=== PATIENT | male | born 1955 | race Hispanic/Latino ===

== ENCOUNTER 2018-07-31 12:36 | Inpatient (IN) | payer BC, OTHER ==
[2018-07-31 12:42] VITALS: BMI 25.0
[2018-07-31] MEDS ORDERED: Sodium Chloride 0.9% 1,000 ML IV ONE ×3 (13:29→17:06)
[2018-07-31 13:56] LABS: LYMPH # 0.4 K/uL (1.0-4.3); MONO # 0.7 K/uL (0.0-0.8); NEUT # 4.5 K/uL (1.8-7.0); WHITE BLOOD COUNT 5.6 K/uL (4.8-10.8)
[2018-07-31 14:04] LABS: BASO % 0.5 % (0.0-2.0); HEMOGLOBIN 13.9 g/dL (12.0-18.0); MEAN CELL VOLUME 94.1 fL (80.0-94.0); MEAN CORPUSCULAR HEMOGLOBIN 34.3 pg (27.0-31.0); MEAN CORPUSCULAR HGB CONC 36.5 g/dL (33.0-37.0); MEAN PLATELET VOLUME 8.2 fL (7.2-11.7); MONO % 11.7 % (0.0-10.0); NEUT % 80.8 % (50.0-75.0); RBC 4.06 Mil/uL (4.40-5.90); RED CELL DISTRIBUTION WIDTH 13.2 % (11.5-14.5)
[2018-07-31 14:10] LABS: PLATELET COUNT 116 K/uL (130-400)
[2018-07-31 14:13] LABS: ALB/GLOB RATIO 1.2 (1.0-2.1); ALBUMIN 3.7 g/dL (3.5-5.0); ALT/SGPT 75 U/L (21-72); AST/SGOT 55 U/L (17-59); BLOOD UREA NITROGEN 17 mg/dL (9-20); CALCIUM 8.8 mg/dl (8.6-10.4); GFR NON-AFRICAN AMERICAN > 60
[2018-07-31 14:26] LABS: CK-MB < 0.22 ng/mL (0.0-3.38)
--- NOTE | 2018-07-31 14:34 | CT ---
Date of service: 07/31/2018 PROCEDURE: CT HEAD WITHOUT CONTRAST. HISTORY: SYNCOPE COMPARISON: 11/20/2013 TECHNIQUE: Axial computed tomography images were obtained through the head/brain without intravenous contrast. Radiation dose: Total exam DLP = 1139.82 mGy-cm. This CT exam was performed using one or more of the following dose reduction techniques: Automated exposure control, adjustment of the mA and/or kV according to patient size, and/or use of iterative reconstruction technique. FINDINGS: HEMORRHAGE: No intracranial hemorrhage. BRAIN: No mass effect or edema. No atrophy or chronic microvascular ischemic changes. VENTRICLES: Unremarkable. No hydrocephalus. CALVARIUM: Unremarkable. PARANASAL SINUSES: Unremarkable as visualized. No significant inflammatory changes. MASTOID AIR CELLS: Unremarkable as visualized. No inflammatory changes. OTHER FINDINGS: None. IMPRESSION: No intracranial mass, hemorrhage or evidence of acute infarct.
[2018-07-31 14:40] LABS: BANDS 10 % (0-2); LYMPHOCYTE 7 % (20-40); MONOCYTE 13 % (0-10); NEUTROPHIL 69 % (50-75); REACTIVE LYMPHOCYTES 1 % (0-0); TOTAL CELLS COUNTED 100
[2018-07-31 14:41] LABS: PLATELET ESTIMATE SLIGHTLY DECREASED (NORMAL)
[2018-07-31] MEDS ORDERED: Sodium Chloride 0.9% 1,000 ML ONE ×2 (15:12→17:23)
[2018-07-31] MEDS ORDERED: Iodixanol 320 MG/ML 100 ML BOTTLE IV ONE (15:33)
[2018-07-31 15:53] LABS: SQUAMOUS EPITHIAL 1 /hpf (0-5); URINE BILIRUBIN NEGATIVE (NEGATIVE); URINE BLOOD NEGATIVE (NEGATIVE); URINE CLARITY Hazy (Clear); URINE COLOR Amber (YELLOW); URINE GLUCOSE (UA) 1+ mg/dL (Normal); URINE LEUKOCYTE ESTERASE NEG Leu/uL (Negative); URINE PROTEIN 2+ mg/dL (NEGATIVE)
--- NOTE | 2018-07-31 16:08 | C.PDOC ---
History Of Present Illness 63 y/o male pt presents to the ER by ambulance from his PMD office due to a syncopal episode. As per EMS, pt has orthostatic changes. As per pt, he has not been feeling well for several days associated with body aches and weakness. Pt reports he went to his PMD today to get his sx checked out. Pt recalls 1 episode of syncope when he was getting his blood taken. He denies chest pain, palpitations, SOB, nausea, vomiting and diarrhea. Time Seen by Provider: 07/31/18 13:03 Chief Complaint (Nursing): Syncope History Per: Patient, EMS History/Exam Limitations: no limitations Onset/Duration Of Symptoms: Hrs Current Symptoms Are (Timing): Still Present Past Medical History Reviewed: Historical Data, Nursing Documentation, Vital Signs Vital Signs: Last Vital Signs Temp 84 F L 07/31/18 12:42 Pulse 73 07/31/18 15:27 Resp 18 07/31/18 15:27 BP 151/86 H 07/31/18 15:27 Pulse Ox 95 07/31/18 15:27 Primary Care Provider: Zev Shipman - Medical History PMH: Arthritis, Depression, Diabetes, Gastritis, Hepatitis (C), HTN Family History: States: Unknown Family Hx - Social History Hx Tobacco Use: No Hx Alcohol Use: No Hx Substance Use: No - Immunization History Hx Tetanus Toxoid Vaccination: No Hx Influenza Vaccination: No Hx Pneumococcal Vaccination: No Review Of Systems Constitutional: Positive for: Other (syncopal episode ) Cardiovascular: Negative for: Chest Pain, Palpitations Respiratory: Negative for: Shortness of Breath Gastrointestinal: Negative for: Nausea, Vomiting, Diarrhea Musculoskeletal: Positive for: Other (body aches ) Neurological: Positive for: Weakness Physical Exam - Physical Exam Appears: Non-toxic, Other (mildly uncomfortable; fatigue) Skin: Warm, Dry Head: Atraumatic, Normacephalic Eye(s): bilateral: PERRL, EOMI Oral Mucosa: Moist Throat: Normal Neck: Normal ROM, Supple Chest: Symmetrical Cardiovascular: Rhythm Regular Respiratory: Normal Breath Sounds Gastrointestinal/Abdominal: Soft, No Tenderness Back: No CVA Tenderness, No Vertebral Tenderness Extremity: Normal ROM (x4) Neurological/Psych: Oriented x3, Normal Speech ED Course And Treatment - Laboratory Results Result Diagrams: 07/31/18 13:44 07/31/18 13:44 Lab Results: D-Dimer, Quantitative 1038 ng/mlDDU (0-243) H 07/31/18 13:44 Troponin I < 0.0120 ng/mL (0.00-0.120) 07/31/18 13:44 Total Bilirubin 0.8 mg/dL (0.2-1.3) 07/31/18 13:44 AST 55 U/L (17-59) 07/31/18 13:44 ALT 75 U/L (21-72) H 07/31/18 13:44 Alkaline Phosphatase 48 U/L (38-126) 07/31/18 13:44 Total Protein 6.7 g/dL (6.3-8.3) 07/31/18 13:44 Albumin 3.7 g/dL (3.5-5.0) 07/31/18 13:44 Globulin 3.0 gm/dL (2.2-3.9) 07/31/18 13:44 Albumin/Globulin Ratio 1.2 (1.0-2.1) 07/31/18 13:44 Urine Color Audrey (YELLOW) 07/31/18 15:41 Urine Clarity Hazy (Clear) 07/31/18 15:41 Urine pH 5.0 (5.0-8.0) 07/31/18 15:41 Ur Specific [place] 1.032 (1.003-1.030) H 07/31/18 15:41 Urine Protein 2+ mg/dL (NEGATIVE) H 07/31/18 15:41 Urine Glucose (UA) 1+ mg/dL (Normal) H 07/31/18 15:41 Urine Ketones 1+ mg/dL (NEGATIVE) H 07/31/18 15:41 Urine Blood Negative (NEGATIVE) 07/31/18 15:41 Urine Nitrate Negative (NEGATIVE) 07/31/18 15:41 Urine Bilirubin Negative (NEGATIVE) 07/31/18 15:41 Urine Urobilinogen 4.0 mg/dL (0.2-1.0) 07/31/18 15:41 Ur Leukocyte Esterase Neg Fausto/uL (Negative) 07/31/18 15:41 Urine WBC (Auto) 7 /hpf (0-5) H 07/31/18 15:41 Urine RBC (Auto) 2 /hpf (0-3) 07/31/18 15:41 Ur Squamous Epith Cells 1 /hpf (0-5) 07/31/18 15:41 ECG: Interpreted By Me, Viewed By Me ECG Rhythm: Sinus Rhythm Interpretation Of ECG: normal axis and no acute ST or T wave changes Rate From EC O2 Sat by Pulse Oximetry: 95 (RA) Pulse Ox Interpretation: Normal - CT Scan/US Head CT Other Rad Studies (CT/US): Read By Radiologist, Radiology Report Reviewed CT/US Interpretation: Accession No. : [id number]. Patient Name / ID : VARGHESE MURRAY / [id number]. Exam Date : 07/31/2018 13:54:00 ( Approved ). Study Comment : Sex / Age : M / 63Y. Creator : Eduard Iraheta MD. Dictator : Eduard Iraheta MD. Steel Heater : [employer] : Eduard Iraheta MD. Approver2 : Report Date : 07/31/2018 14:30:21. My Comment : . Date of service: 07/31/2018. PROCEDURE: CT HEAD WITHOUT CONTRAST. HISTORY: SYNCOPE. COMPARISON: 11/20/2013. TECHNIQUE: Axial computed tomography images were obtained through the head/brain without intravenous contrast. Radiation dose: Total exam DLP = 1139.82 mGy-cm. This CT exam was performed using one or more of the following dose reduction techniques: Automated exposure control, adjustment of the mA and/or kV according to patient size, and/or use of iterative reconstruction technique. FINDINGS: HEMORRHAGE: No intracranial hemorrhage. BRAIN: No mass effect or edema. No atrophy or chronic microvascular ischemic changes. VENTRICLES: Unremarkable. No hydrocephalus. CALVARIUM: Unremarkable. PARANASAL SINUSES: Unremarkable as visualized. No significant inflammatory changes. MASTOID AIR CELLS: Unremarkable as visualized. No inflammatory changes. OTHER FINDINGS: None. IMPRESSION: No intracranial mass, hemorrhage or evidence of acute infarct. Chest CT Other Rad Studies (CT/US): Read By Radiologist, Radiology Report Reviewed CT/US Interpretation: Accession No. : [id number]. Patient Name / ID : VARGHESE Gilmore / [id number]. Exam Date : 07/31/2018 16:19:45 ( Approved ). Study Comment : Sex / Age : M / 63Y. Creator : Indiana Peck. Dictator : Dinesh Mobley MD. Steel Heater : [employer] : Dinesh Mobley MD. Approver2 : Report Date : 07/31/2018 16:30:58. My Comment : . Date of service: 07/31/2018. PROCEDURE: CT Chest with contrast (Pulmonary Angiogram). HISTORY: SYNCOPE, ELEVATED D-DIMER. COMPARISON: None available. TECHNIQUE: Axial computed tomography images were obtained of the chest in the pulmonary arterial phase of enhancement. Coronal and sagittal reformatted images were created and reviewed. Intravenous contrast dose: 100 cc Visipaque 320. Radiation dose: Total exam DLP = 562.74 mGy-cm. This CT exam was performed using one or more of the following dose reduction techniques: Automated exposure control, adjustment of the mA and/or kV according to patient size, and/or use of iterative reconstruction technique. FINDINGS: PULMONARY ARTERIES: The visualized pulmonary trunk, right and left main, lobar, segmental and subsegmental branches of the pulmonary arteries are well opacified with no definitive filling defects seen to suggest acute central pulmonary embolus. Pulmonary trunk measures approximately 2.9 cm. AORTA: Heart size normal. No significant pericardial effusion. No acute findings. No thoracic aortic aneurysm. Ascending thoracic aorta measures approximately 3.3 cm and descending thoracic aorta measures approximately 2.5 cm. Minor aortic atherosclerotic calcification or mural plaque present. LUNGS: Linear/discoid type atelectasis seen in the left upper lobe and lingular region,. In addition, there there also appears to be some tree-in-bud opacities in the left lung base. There is also mild passive-type atelectasis both posterior lower lung velez right greater than left.. Elliptical shaped nodule seen in the right middle lobe region that measures approximately 8.0 x 5.1 mm which appears to be associated with linear scarring that extends to the pleural surface.. Follow-up CT scan at 6 month interval recommended. PLEURAL SPACES: Unremarkable. No effusion or pneumothorax. HEART: Unremarkable. No cardiomegaly. No significant pericardial effusion. LYMPH NODES: No significant mediastinal or in addition hilar adenopathy. Trachea midline and patent with no large central endoluminal lesions. There is a small hiatal hernia. Wall thickening of distal esophagus; recommend follow-up of endoscopy to exclude esophagitis or other intrinsic/invasive wall lesion. BONES, CHEST WALL: Chronic appearing anterior stature loss of the T11, L1 and to a lesser degree T12 segments. Mild multilevel degenerative spondylosis of the thoracic spine. OTHER FINDINGS: Scattered calcifications seen in the left lobe liver. Small elliptical shaped low- attenuation lesion left adrenal gland with Hounsfield units in the negative single digits likely representing small adenoma or myelolipoma. IMPRESSION: No evidence of acute central pulmonary embolus. Linear discoid atelectasis seen in the left upper lobe and lingular region. Additionally, there also appear to be some tree-in-bud opacities in the left lung base and. Elliptical shaped nodule seen in the right middle lobe region that measures approximately 8.0 x 5.1 mm which appears to be associate with some linear scarring extends to the pleural surface.. Recommend follow-up associated with some linear scarring CT scan at 6 month interval recommended. Wall thickening of distal esophagus; recommend follow-up of endoscopy to exclude esophagitis or other intrinsic/invasive wall lesion. See above discussion for additional details and findings. Progress Note: Plans: -- labs. -- EKG. -- CT head. -- IV fluids. CT angio will be done due to elevated D-dimer. Disposition - Disposition - Scribe Statement The provider has reviewed the documentation as recorded by the Melissaibsherman Howell Do Provider Attestation: All medical record entries made by the Scribe were at my direction and personally dictated by me. I have reviewed the chart and agree that the record accurately reflects my personal performance of the history, physical exam, medical decision making, and the department course for this patient. I have also personally directed, reviewed, and agree with the discharge instructions and disposition.
[2018-07-31 16:33] LABS: BARBITURATES, UR NEGATIVE (NEGATIVE); BENZODIAZEPINES, UR NEGATIVE (NEGATIVE); OPIATES, UR NEGATIVE (NEGATIVE); PHENCYCLIDINE, UR NEGATIVE (NEGATIVE)
--- NOTE | 2018-07-31 17:05 | CT ---
Date of service: 07/31/2018 PROCEDURE: CT Chest with contrast (Pulmonary Angiogram) HISTORY: SYNCOPE, ELEVATED D-DIMER COMPARISON: None available. TECHNIQUE: Axial computed tomography images were obtained of the chest in the pulmonary arterial phase of enhancement. Coronal and sagittal reformatted images were created and reviewed. Intravenous contrast dose: 100 cc Visipaque 320 Radiation dose: Total exam DLP = 562.74 mGy-cm. This CT exam was performed using one or more of the following dose reduction techniques: Automated exposure control, adjustment of the mA and/or kV according to patient size, and/or use of iterative reconstruction technique. FINDINGS: PULMONARY ARTERIES: The visualized pulmonary trunk, right and left main, lobar, segmental and subsegmental branches of the pulmonary arteries are well opacified with no definitive filling defects seen to suggest acute central pulmonary embolus. Pulmonary trunk measures approximately 2.9 cm. AORTA: Heart size normal. No significant pericardial effusion. No acute findings. No thoracic aortic aneurysm. Ascending thoracic aorta measures approximately 3.3 cm and descending thoracic aorta measures approximately 2.5 cm. Minor aortic atherosclerotic calcification or mural plaque present. LUNGS: Linear/discoid type atelectasis seen in the left upper lobe and lingular region,. In addition, there there also appears to be some tree-in-bud opacities in the left lung base There is also mild passive-type atelectasis both posterior lower lung velez right greater than left.. Elliptical shaped nodule seen in the right middle lobe region that measures approximately 8.0 x 5.1 mm which appears to be associated with linear scarring that extends to the pleural surface.. Follow-up CT scan at 6 month interval recommended. PLEURAL SPACES: Unremarkable. No effusion or pneumothorax. HEART: Unremarkable. No cardiomegaly. No significant pericardial effusion. LYMPH NODES: No significant mediastinal or in addition hilar adenopathy. Trachea midline and patent with no large central endoluminal lesions. There is a small hiatal hernia. Wall thickening of distal esophagus; recommend follow-up of endoscopy to exclude esophagitis or other intrinsic/invasive wall lesion. BONES, CHEST WALL: Chronic appearing anterior stature loss of the T11, L1 and to a lesser degree T12 segments. Mild multilevel degenerative spondylosis of the thoracic spine. OTHER FINDINGS: Scattered calcifications seen in the left lobe liver. Small elliptical shaped low-attenuation lesion left adrenal gland with Hounsfield units in the negative single digits likely representing small adenoma or myelolipoma IMPRESSION: No evidence of acute central pulmonary embolus. Linear discoid atelectasis seen in the left upper lobe and lingular region. Additionally, there also appear to be some tree-in-bud opacities in the left lung base and Elliptical shaped nodule seen in the right middle lobe region that measures approximately 8.0 x 5.1 mm which appears to be associate with some linear scarring extends to the pleural surface.. Recommend follow-up associated with some linear scarring CT scan at 6 month interval recommended. Wall thickening of distal esophagus; recommend follow-up of endoscopy to exclude esophagitis or other intrinsic/invasive wall lesion. See above discussion for additional details and findings.
[2018-07-31] MEDS ORDERED: cefTRIAXone IV 1 gm in Dextros 50 ML IV ONE (17:26)
--- NOTE | 2018-07-31 19:53 | CP.PCM.HP ---
<Trevin Sheets - Last Filed: 08/01/18 03:28> History of Present Illness - History of Present Illness History of Present Illness: Medicine History and Physical for Hospitalist Service, Dr. Modesta Hernandez 63 y o M PMhx arthritis, depression, DM2, gastritis, Hep C (s/p tx, neg viral load), HTN, sleep apnea, who presented to the ED s/p syncopal episode. Per report, pt was in PMD Dr. Begum office today and was having blood drawn when he had this syncopal episode. Denies hx of this occurring before. Pt reports he has not been feeling well for the past several days, c/o associated body aches a nd weakness. Reports dry cough without sputum x 1 week. Pt also reports chronic hx of low back pain that has been worsening for the past 4 days, thus bringing him to his PMDs office to be evaluated. Reports subjective fevers. Admits to sob that is worsened when he lies flat in bed at night, states having several pillows underneath his head does not help w/ symptoms. Denies headache, chest pain, n/v/d/c, abd pain, urinary complaints, or other symptoms. Reports being prescribed CPAP machine in the past but has not used it. 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 Shipman Pharmacy: [facility]) Present on Admission - Present on Admission Any Indicators Present on Admission: Yes History of Uncontrolled Diabetes: Yes Review of Systems - Constitutional Constitutional: Chills, Fatigue, Fever, Headache, Malaise - Cardiovascular Cardiovascular: Dyspnea, Syncope. absent: Chest Pain - Respiratory Respiratory: Cough, Dyspnea. absent: Chest Congestion, Excessive Mucous Production - Gastrointestinal Gastrointestinal: absent: Abdominal Pain, Constipation, Diarrhea, Nausea, Vomiting - Genitourinary Genitourinary: absent: Change in Urinary Stream, Difficulty Urinating, Dysuria Past Patient History - Infectious Disease Hx of Infectious Diseases: None - Past Medical History & Family History Past Medical History?: Yes - Past Social History Smoking Status: Former Smoker - CARDIAC Hx Hypertension: Yes - ENDOCRINE/METABOLIC Hx Endocrine Disorders: Yes Hx Diabetes Mellitus Type 2: Yes - HEMATOLOGICAL/ONCOLOGICAL Hx Blood Disorders: Yes Hx Blood Transfusions: Yes Hx Blood Transfusion Reaction: No Hx Hepatitis C: Yes - MUSCULOSKELETAL/RHEUMATOLOGICAL Hx Arthritis: Yes - GASTROINTESTINAL Hx Gastritis: Yes - GENITOURINARY/GYNECOLOGICAL Hx Genitourinary Disorders: No - PSYCHIATRIC Hx Depression: Yes Hx Substance Use: No - SURGICAL HISTORY Hx Surgeries: Yes Hx Musculoskeletal Surgery: Yes (Left elbow 05/17 07/17) Hx Orthopedic Surgery: (R shoulder 2014 left shoulder) - ANESTHESIA Hx Anesthesia: Yes Hx Anesthesia Reactions: No Hx Malignant Hyperthermia: No Meds Allergies/Adverse Reactions: Allergies Allergy/AdvReac Type Severity Reaction Status Date / Time No Known Allergies Allergy Verified 07/31/18 12:42 Physical Exam - Constitutional Appears: Non-toxic, No Acute Distress - Head Exam Head Exam: ATRAUMATIC, NORMOCEPHALIC - Eye Exam Eye Exam: EOMI, Normal appearance, PERRL - ENT Exam ENT Exam: Mucous Membranes Moist, Normal Oropharynx, TM's Normal Bilaterally - Respiratory Exam Respiratory Exam: Clear to Auscultation Bilateral, NORMAL BREATHING PATTERN. absent: Rales, Rhonchi, Wheezes - Cardiovascular Exam Cardiovascular Exam: REGULAR RHYTHM, +S1, +S2. absent: Gallop, Rubs, Systolic Murmur - GI/Abdominal Exam GI & Abdominal Exam: Normal Bowel Sounds, Soft. absent: Distended, Organomegaly, Tenderness - Extremities Exam Extremities exam: Positive for: full ROM, normal capillary refill, normal inspection, pedal pulses present. Negative for: pedal edema - Back Exam Back exam: FULL ROM, NORMAL INSPECTION. absent: paraspinal tenderness - Neurological Exam Neurological exam: Alert, CN II-XII Intact, Oriented x3, Reflexes Normal - Skin Skin Exam: Dry, Intact, Warm Results - Vital Signs Recent Vital Signs: Last Vital Signs Temp 100 F H 07/31/18 19:27 Pulse 85 07/31/18 19:27 Resp 22 07/31/18 19:27 BP 159/87 H 07/31/18 19:27 Pulse Ox 96 07/31/18 19:27 - Labs Result Diagrams: 07/31/18 13:44 07/31/18 13:44 Labs: Laboratory Results - last 24 hr 07/31/18 07/31/18 07/31/18 12:41 13:44 13:44 WBC 5.6 RBC 4.06 L Hgb 13.9 Hct 38.2 MCV 94.1 H MCH 34.3 H MCHC 36.5 RDW 13.2 Plt Count 116 L D MPV 8.2 Neut % (Auto) 80.8 H Lymph % (Auto) 7.0 L Allen % (Auto) 11.7 H Eos % (Auto) 0.0 Baso % (Auto) 0.5 Neut # (Auto) 4.5 Lymph # (Auto) 0.4 L Allen # (Auto) 0.7 Eos # (Auto) 0.0 Baso # (Auto) 0.0 Neutrophils % (Manual) 69 Band Neutrophils % 10 H Lymphocytes % (Manual) 7 L Reactive Lymphs % 1 H Monocytes % (Manual) 13 H Platelet Estimate Slightly decreased L D-Dimer, Quantitative Sodium 139 Potassium 3.9 Chloride 100 Carbon Dioxide 29 Anion Gap 15 BUN 17 Creatinine 0.9 Est GFR ( Amer) > 60 Est GFR (Non-Af Amer) > 60 POC Glucose (mg/dL) 125 H Random Glucose 114 H D Calcium 8.8 Total Bilirubin 0.8 AST 55 ALT 75 H Alkaline Phosphatase 48 Total Creatine Kinase 98 CK-MB (Mass) < 0.22 Troponin I < 0.0120 Total Protein 6.7 Albumin 3.7 Globulin 3.0 Albumin/Globulin Ratio 1.2 Urine Color Urine Clarity Urine pH Ur Specific Virgin Urine Protein Urine Glucose (UA) Urine Ketones Urine Blood Urine Nitrate Urine Bilirubin Urine Urobilinogen Ur Leukocyte Esterase Urine WBC (Auto) Urine RBC (Auto) Ur Squamous Epith Cells Urine Opiates Screen Urine Methadone Screen Ur Barbiturates Screen Ur Phencyclidine Scrn Ur Amphetamines Screen U Benzodiazepines Scrn U Oth Cocaine Metabols U Cannabinoids Screen Infectious Allen Assay Grp A Beta Strep Ag 07/31/18 07/31/18 07/31/18 13:44 15:41 15:41 WBC RBC Hgb Hct MCV MCH MCHC RDW Plt Count MPV Neut % (Auto) Lymph % (Auto) Allen % (Auto) Eos % (Auto) Baso % (Auto) Neut # (Auto) Lymph # (Auto) Allen # (Auto) Eos # (Auto) Baso # (Auto) Neutrophils % (Manual) Band Neutrophils % Lymphocytes % (Manual) Reactive Lymphs % Monocytes % (Manual) Platelet Estimate D-Dimer, Quantitative 1038 H Sodium Potassium Chloride Carbon Dioxide Anion Gap BUN Creatinine Est GFR ( Amer) Est GFR (Non-Af Amer) POC Glucose (mg/dL) Random Glucose Calcium Total Bilirubin AST ALT Alkaline Phosphatase Total Creatine Kinase CK-MB (Mass) Troponin I Total Protein Albumin Globulin Albumin/Globulin Ratio Urine Color Audrey Urine Clarity Hazy Urine pH 5.0 Ur Specific Virgin 1.032 H Urine Protein 2+ H Urine Glucose (UA) 1+ H Urine Ketones 1+ H Urine Blood Negative Urine Nitrate Negative Urine Bilirubin Negative Urine Urobilinogen 4.0 Ur Leukocyte Esterase Neg Urine WBC (Auto) 7 H Urine RBC (Auto) 2 Ur Squamous Epith Cells 1 Urine Opiates Screen Negative Urine Methadone Screen Negative Ur Barbiturates Screen Negative Ur Phencyclidine Scrn Negative Ur Amphetamines Screen Positive H U Benzodiazepines Scrn Negative U Oth Cocaine Metabols Negative U Cannabinoids Screen Negative Infectious Allen Assay Grp A Beta Strep Ag 07/31/18 07/31/18 16:47 17:50 WBC RBC Hgb Hct MCV MCH MCHC RDW Plt Count MPV Neut % (Auto) Lymph % (Auto) Allen % (Auto) Eos % (Auto) Baso % (Auto) Neut # (Auto) Lymph # (Auto) Allen # (Auto) Eos # (Auto) Baso # (Auto) Neutrophils % (Manual) Band Neutrophils % Lymphocytes % (Manual) Reactive Lymphs % Monocytes % (Manual) Platelet Estimate D-Dimer, Quantitative Sodium Potassium Chloride Carbon Dioxide Anion Gap BUN Creatinine Est GFR ( Amer) Est GFR (Non-Af Amer) POC Glucose (mg/dL) 93 Random Glucose Calcium Total Bilirubin AST ALT Alkaline Phosphatase Total Creatine Kinase CK-MB (Mass) Troponin I Total Protein Albumin Globulin Albumin/Globulin Ratio Urine Color Urine Clarity Urine pH Ur Specific Virgin Urine Protein Urine Glucose (UA) Urine Ketones Urine Blood Urine Nitrate Urine Bilirubin Urine Urobilinogen Ur Leukocyte Esterase Urine WBC (Auto) Urine RBC (Auto) Ur Squamous Epith Cells Urine Opiates Screen Urine Methadone Screen Ur Barbiturates Screen Ur Phencyclidine Scrn Ur Amphetamines Screen U Benzodiazepines Scrn U Oth Cocaine Metabols U Cannabinoids Screen Infectious Allen Assay Negative Grp A Beta Strep Ag Negative Assessment & Plan - Assessment and Plan (Free Text) Assessment: 63 y o M PMhx arthritis, depression, DM2, gastritis, Hep C (s/p tx, neg viral load), HTN, sleep apnea, who presented to the ED s/p syncopal episode. R/o neurogenic, cardiogenic causes. Plan: Syncope -Admit to tele -Orthostatics -Echo pending -IVF @ 100 cc/hr -Cardio consulted, Dr. Langston, recs appreciated -Neuro consulted, Dr. Hair, recs appreciated -Head CT: no intracranial mass, hemorrhage or evidence of acute infarct -CT angio chest: no evidence of acute central PE. Linear discoid atelectasis seen in L upper lobe and lingular region. Some tree-in-bud opacities in the L lung base. Elliptical shaped nodule seen in R middle lobe region that measures approx 8x5.1 mm which appears to be assoc. w/ some linear scarring extends to the pleural surface. Recommend f/u CT scan at 6 mo interval. Wall thickening of distal esophagus, recommend f/u of endoscopy to exclude esophagitis or other intrinsic/invasive wall lesion. -EKG shows NSR at 85, no acute St-t wave changes, QT 372, QTc 442 -D-dimer elevated -DAYLIN x1 neg on admission, repeat ROMIs x2 pending -Pending thyroid studies -Repeat EKG tomorrow am URI symptoms -CT chest demonstrates no consolidation or PNA -U/a: increased specific gravity, 2+ protein, 1+ glucose, 1+ ketones, WBC 7, neg for LE or nitrites -Blood, throat, urine cxs pending -Rapid strep A and mono neg -Febrile to 102.7 rectally in ED -Tylenol prn for fevers -Robitussin prn for cough -Zithromax IVPB daily -Procal ordered -Cont to monitor Thrombocytopenia -116,000 on admission -Stable c/w prior visits -Cont to monitor Hx DM2 -Metformin held on admission -C/w home meds Januvia and Glipizide -ISS -Fingersticks achs -Hypoglycemic protocol -Pending A1c, lipid panel Hx HTN -C/w home meds Losartan, HCTZ -Cont to trend BPs, hypertensive in ED s/p fluids Hx Depression -C/w Abilify daily -UDS pos for amphetamines Hx Hep C -S/p tx, no hx of cirrhosis as per pt, pt states last viral load was zero -Can f/u outpatient with PCP DVT/GI ppx: Heparin, SCD, Protonix Pt seen, examined with, and plan discussed with Dr. Modesta Hernandez, attending physician. Trevin Sheets DO PGY-1, [facility] Pager #[phone] <Modesta Hernandez N - Last Filed: 08/02/18 06:37> Results - Vital Signs Recent Vital Signs: Last Vital Signs Temp 98.3 F 08/01/18 23:40 Pulse 80 08/02/18 01:00 Resp 20 08/01/18 23:40 BP 141/69 08/01/18 23:40 Pulse Ox 95 08/01/18 23:40 - Labs Result Diagrams: 08/01/18 05:59 08/01/18 05:59 Labs: Laboratory Results - last 24 hr 08/01/18 08/01/18 08/01/18 05:59 05:59 05:59 Puncture Site pCO2 pO2 HCO3 ABG pH ABG Total CO2 ABG O2 Saturation ABG Base Excess Alfonso Test ABG Potassium A-a O2 Difference Respiratory Index Sodium Chloride Glucose Lactate Liter Flow FiO2 POC Glucose (mg/dL) Troponin I 0.0170 LDL Cholesterol Direct 55 Procalcitonin 0.08 L Free T4 0.97 Free T3 pg/mL 2.39 L TSH 3rd Generation 0.99 Arterial Blood Potassium HIV 1&2 Antibody Screen Ur L.pneumophila Ag S. pneumoniae Antigen 08/01/18 08/01/18 08/01/18 06:45 11:24 13:10 Puncture Site Lr pCO2 34 L pO2 75 L HCO3 26.6 ABG pH 7.48 H ABG Total CO2 26.3 ABG O2 Saturation 97.6 ABG Base Excess 2.2 Alfonso Test Pos ABG Potassium 2.9 L A-a O2 Difference 111.0 Respiratory Index 1.5 Sodium 132.0 Chloride 101.0 Glucose 153 H Lactate 1.1 Liter Flow 3.0 FiO2 32.0 POC Glucose (mg/dL) 91 114 H Troponin I LDL Cholesterol Direct Procalcitonin Free T4 Free T3 pg/mL TSH 3rd Generation Arterial Blood Potassium 2.9 L HIV 1&2 Antibody Screen Ur L.pneumophila Ag S. pneumoniae Antigen 08/01/18 08/01/18 08/01/18 13:41 15:48 17:39 Puncture Site pCO2 pO2 HCO3 ABG pH ABG Total CO2 ABG O2 Saturation ABG Base Excess Alfonso Test ABG Potassium A-a O2 Difference Respiratory Index Sodium Chloride Glucose Lactate Liter Flow FiO2 POC Glucose (mg/dL) 127 H Troponin I LDL Cholesterol Direct Procalcitonin Free T4 Free T3 pg/mL TSH 3rd Generation Arterial Blood Potassium HIV 1&2 Antibody Screen Negative Ur L.pneumophila Ag S. pneumoniae Antigen Negative 08/01/18 08/01/18 17:39 20:58 Puncture Site pCO2 pO2 HCO3 ABG pH ABG Total CO2 ABG O2 Saturation ABG Base Excess Alfonso Test ABG Potassium A-a O2 Difference Respiratory Index Sodium Chloride Glucose Lactate Liter Flow FiO2 POC Glucose (mg/dL) 145 H Troponin I LDL Cholesterol Direct Procalcitonin Free T4 Free T3 pg/mL TSH 3rd Generation Arterial Blood Potassium HIV 1&2 Antibody Screen Ur L.pneumophila Ag Negative S. pneumoniae Antigen Attending/Attestation - Attestation I have fully participated in the care of the patient.: Yes I have reviewed all pertinent clinical information: Yes
[2018-07-31 23:50] LABS: CK-MB 0.31 ng/mL (0.0-3.38)
[2018-08-01] MEDS ORDERED: Glucagon Recombinant 1 mg Inj IM PRN (01:01)
[2018-08-01] MEDS ORDERED: Dextrose 50% SYRINGE Inj (50 ml) IV PRN (01:01)
[2018-08-01] MEDS ORDERED: guaiFENesin 100 mg/5 ml Syrup UD PO PRN (01:47)
[2018-08-01 06:05] LABS: BASO % 0.5 % (0.0-2.0); HEMOGLOBIN 12.9 g/dL (12.0-18.0); LYMPH # 0.5 K/uL (1.0-4.3); LYMPH % 11.1 % (20.0-40.0); MEAN CELL VOLUME 91.7 fL (80.0-94.0); MEAN PLATELET VOLUME 7.6 fL (7.2-11.7); MONO # 0.5 K/uL (0.0-0.8); MONO % 11.3 % (0.0-10.0); NEUT # 3.6 K/uL (1.8-7.0); NEUT % 77.1 % (50.0-75.0); NRBC % 0.1 % (0.0-2.0); RBC 3.9 Mil/uL (4.40-5.90); RED CELL DISTRIBUTION WIDTH 13.6 % (11.5-14.5); WHITE BLOOD COUNT 4.6 K/uL (4.8-10.8)
[2018-08-01 06:26] LABS: ALB/GLOB RATIO 1.2 (1.0-2.1); ALBUMIN 3.5 g/dL (3.5-5.0); ALT/SGPT 74 U/L (21-72); AST/SGOT 56 U/L (17-59); BLOOD UREA NITROGEN 11 mg/dL (9-20); CALCIUM 8.2 mg/dl (8.6-10.4); GFR NON-AFRICAN AMERICAN > 60; HDL CHOLESTEROL 26 mg/dL (30-70)
[2018-08-01 06:33] LABS: CK-MB 0.39 ng/mL (0.0-3.38)
[2018-08-01] MEDS ORDERED: Potassium Phosphate 15 MMOLE in Sodium Chloride 0.9% 250 ML IVPB ONE (06:35)
[2018-08-01 06:38] LABS: LDL CHOLESTEROL 55 mg/dL (0-129)
[2018-08-01] MEDS: (Novolog) Insulin Aspart, Recombinant 100 u/ml 10 ml vial SC SCH ×4 (07:36→21:43)
[2018-08-01] MEDS: Pantoprazole 40 mg EC Tab PO SCH (10:10)
[2018-08-01] MEDS: Azithromycin 500 MG in Sodium Chloride 0.9% 250 ML IVPB SCH (10:12)
--- NOTE | 2018-08-01 12:31 | CP.PCM.PN ---
Subjective - Date & Time of Evaluation Date of Evaluation: 08/01/18 Time of Evaluation: 12:00 - Subjective Subjective: Patient was seen and examined by me. Patient reports no chest pain, no abdominal pain, no palpitations, no headache, no nausea/vomiting + shortness of breath, + cough, + weight loss, + depression + suicidal ideation this morning Family member Tonya in person and also spoke with family member Prema over the speaker phone. Patient was asleep and it took a bit of yelling loudly to wake him up. He was able to answer questions and then fell asleep again. Family report he has been having episodes of a lot of prolonged sleeping like this and loud snoring as well. As mentioned previously the patient went to see his PMD (Dr Shipman) because of several weeks of fatigue, weakness, and while at office he passed out. Supposedly he had a syncopal episode at the office and brought to the ER. Patient takes prescribed abilify, amphetamine, and klonopine. He said to us that he was depressed and wanted to end his life in front of me and family. He denied trying to overdose however his eye exam shows pin point pupils and he is constantly falling asleep. CT of the head was done and was negative. CT of the chest suggest a possible pneumonia / tree in bud appearance pattern left lower lobe. He had bandemia on the CBC. Objective - Vital Signs/Intake and Output Vital Signs (last 24 hours): Temp Pulse Resp BP Pulse Ox 99.7 F H 89 20 170/89 H 94 L 08/01/18 08:30 08/01/18 11:28 08/01/18 08:30 08/01/18 08:30 08/01/18 08:30 - Medications Medications: Current Medications Acetaminophen (Tylenol 325mg Tab) 650 mg PO Q6 PRN PRN Reason: Fever >100.4 F Aripiprazole (Abilify) 10 mg PO DAILY ASH Last Admin: 08/01/18 10:17 Dose: 10 mg Dextrose (Dextrose 50% Inj) 0 ml IV STAT PRN; Protocol PRN Reason: Hypoglycemia Protocol Dextrose (Glutose 15) 0 gm PO ONCE PRN; Protocol PRN Reason: Hypoglycemia Protocol Glucagon (Glucagen Diagnostic Kit) 0 mg IM STAT PRN; Protocol PRN Reason: Hypoglycemia Protocol Guaifenesin (Robitussin) 100 mg PO Q4H PRN PRN Reason: Cough Last Admin: 08/01/18 02:02 Dose: 100 mg Heparin Sodium (Porcine) (Heparin) 5,000 units SC Q8 [facility] Last Admin: 08/01/18 06:45 Dose: 5,000 units Hydrochlorothiazide (Microzide) 12.5 mg PO DAILY [facility] Last Admin: 08/01/18 10:09 Dose: 12.5 mg Azithromycin 500 mg/ Sodium (Chloride) 250 mls @ 250 mls/hr IVPB DAILY [facility]; Protocol Last Admin: 08/01/18 10:12 Dose: 250 mls/hr Dextrose (Dextrose 5% In Water 1000 Ml) 1,000 mls @ 0 mls/hr IV .Q0M PRN; Protocol PRN Reason: Hypoglycemia Protocol Potassium Phosphate 15 mmole/ (Sodium Chloride) 255 mls @ 42.5 mls/hr IVPB ONCE ONE Stop: 08/01/18 12:34 Last Admin: 08/01/18 07:10 Dose: 42.5 mls/hr Insulin Aspart (Novolog) 0 unit SC ACHS [facility]; Protocol Last Admin: 08/01/18 11:42 Dose: Not Given Losartan Potassium (Cozaar) 50 mg PO DAILY [facility] Last Admin: 08/01/18 10:10 Dose: 50 mg Pantoprazole Sodium (Protonix Ec Tab) 40 mg PO DAILY [facility] Last Admin: 08/01/18 10:10 Dose: 40 mg Sitagliptin Phosphate (Januvia) 100 mg PO DAILY [facility] Last Admin: 08/01/18 10:10 Dose: Not Given - Labs Labs: 08/01/18 05:59 08/01/18 05:59 - Constitutional Appears: Unkempt, Confused, Chronically Ill - Eye Exam Pupil Exam: Miosis Additional comments: Pinpoint pupils bilaterally. He claims he did not try to overdose - Respiratory Exam Respiratory Exam: Rales, Rhonchi - Cardiovascular Exam Cardiovascular Exam: REGULAR RHYTHM - GI/Abdominal Exam GI & Abdominal Exam: Soft, Normal Bowel Sounds. absent: Firm, Guarding, Rigid, Tenderness - Neurological Exam Neurological Exam: Altered, Awake Neuro motor strength exam: Left Upper Extremity: 5, Right Upper Extremity: 5, Left Lower Extremity: 4, Right Lower Extremity: 4 Additional comments: He was drowsy, falling asleep all the time. Pinpoint pupils. He was following simple commands including raising arm, squeezing my hand, sticking out tounge, EOMI intact. No facial droop - Psychiatric Exam Psychiatric exam: Depressed, Flat Affect - Skin Skin Exam: Normal Color, Warm Assessment and Plan - Assessment and Plan (Free Text) Assessment: 63 y o M PMhx arthritis, depression, DM2, gastritis, Hep C (s/p tx, neg viral load), HTN, sleep apnea, who presented to the ED s/p syncopal episode. R/o neurogenic, cardiogenic causes. Plan: Pneumonia / Tree in bud appearance 08/01: Intially had bandemia seen. WBC is otherwise low. For now continue on the Azithromycin and Rocpehin. Check also HIV 1,2 and the atypical studies as well. Pending the blood cultures and urine cultures. Will need to get a pulmonary evaluation as well. Considering what the family tell us about his prolonged sleeping, snorring, and taking of several medications for depression, anxiety, and his sleeping disorders - suspect he has had aspiration pneumonia for some time now. Hold off on respiratory depressant medication. I told the family and patient I'd rather him anxious for a little bit then risk depressing his respirations more. CT angio chest: no evidence of acute central PE. Linear discoid atelectasis seen in L upper lobe and lingular region. Some tree-in-bud opacities in the L lung base. Elliptical shaped nodule seen in R middle lobe region that measures approx 8x5.1 mm which appears to be assoc. w/ some linear scarring extends to the pleural surface. Recommend f/u CT scan at 6 mo interval. Wall thickening of distal esophagus, recommend f/u of endoscopy to exclude esophagitis or other intrinsic/invasive wall lesion. Hx Depression and Insomnia - Suicidal Ideation 08/01: Patient in front of me and my colleague and also witnessed by family member Viv said he wanted to end his life. He then denied trying to overdose on his klonopine, amphetamine, or abilify. On exam he has pinpoint pupils. It is possible his weakness and fatige past couple of weeks is from being overly prescibred - or he really is deliberately taking excessive medication Hold off on the klonopine, abilify, and amphetamine at this time Syncope 08/01: This morning had echo done. Pending read. IVF held because the blood pressure is relatively elevated. Will get a PT evaluation. Also CT done yesterday and this was stable, no mass or bleeding or infact We are pending cardiology and neurology evaluation We can repeat the orthostatics He may be overly presrscried medications / or deliberatly taking too much URI symptoms 08/01: Rapid strep A study was negative. Pending cultures at this time Continue Rocpehin and Azithromycin U/A: increased specific gravity, 2+ protein, 1+ glucose, 1+ ketones, WBC 7, neg for LE or nitrites Thrombocytopenia 08/01: Continue to monitor platelets, 116,000 on admission Hx DM2 08/01: For now the patient will hold off on glipizide and the metformin. His blood sugars are not elevated and he does not appear to be eating very much Hx HTN 08/01: Continue to monitor at this time. Hx Hep C No hx of cirrhosis as per pt, pt states last viral load was zero DVT/GI ppx: Heparin, SCD, Protonix
[2018-08-01 13:20] LABS: ABG ALLEN TEST POS; ARTERIAL BLOOD GAS HCO3 26.6 mmol/L (21-28); ARTERIAL BLOOD GAS O2 SAT 97.6 % (95-98); ARTERIAL BLOOD GAS PCO2 34 mm/Hg (35-45); ARTERIAL BLOOD GAS PH 7.48 (7.35-7.45); ARTERIAL BLOOD GAS PO2 75 mm/Hg (80-100); ARTERIAL BLOOD GAS TCO2 26.3 mmol/L (22-28)
--- NOTE | 2018-08-01 14:10 | CP.PCM.CON ---
History of Present Illness - History of Present Illness History of Present Illness: Neurology Consultation Note: Consult requested by Dr. Hernandez Mr. Carnes is a 63-year-old man with a past medical history of arthritis, de pression, DM2, gastritis, Hep C, HTN, sleep apnea, who was at his PMDs office having blood drawn and he had a syncopal episode. Neurology was consulted to assist with the management and care. There were no reported abnormal movements, urinary/bowel incontinence, changes in mental status afterward or post ictal state. There was no reported speech difficulty, gait disturbance or blurry vision. Review of Systems - Review of Systems All systems: reviewed and no additional remarkable complaints except Past Patient History - Infectious Disease Hx of Infectious Diseases: None - Past Medical History & Family History Past Medical History?: Yes - Past Social History Smoking Status: Former Smoker - CARDIAC Hx Hypertension: Yes - ENDOCRINE/METABOLIC Hx Endocrine Disorders: Yes Hx Diabetes Mellitus Type 2: Yes - HEMATOLOGICAL/ONCOLOGICAL Hx Blood Disorders: Yes Hx Blood Transfusions: Yes Hx Blood Transfusion Reaction: No Hx Hepatitis C: Yes - MUSCULOSKELETAL/RHEUMATOLOGICAL Hx Arthritis: Yes - GASTROINTESTINAL Hx Gastritis: Yes - GENITOURINARY/GYNECOLOGICAL Hx Genitourinary Disorders: No - PSYCHIATRIC Hx Depression: Yes Hx Substance Use: No - SURGICAL HISTORY Hx Surgeries: Yes Hx Musculoskeletal Surgery: Yes (Left elbow 05/17 07/17) Hx Orthopedic Surgery: (R shoulder 2014 left shoulder) - ANESTHESIA Hx Anesthesia: Yes Hx Anesthesia Reactions: No Hx Malignant Hyperthermia: No Meds Allergies/Adverse Reactions: Allergies Allergy/AdvReac Type Severity Reaction Status Date / Time No Known Allergies Allergy Verified 07/31/18 12:42 - Medications Medications: Current Medications Acetaminophen (Tylenol 325mg Tab) 650 mg PO Q6 PRN PRN Reason: Fever >100.4 F Aripiprazole (Abilify) 10 mg PO DAILY [facility] Last Admin: 08/01/18 10:17 Dose: 10 mg Dextrose (Dextrose 50% Inj) 0 ml IV STAT PRN; Protocol PRN Reason: Hypoglycemia Protocol Dextrose (Glutose 15) 0 gm PO ONCE PRN; Protocol PRN Reason: Hypoglycemia Protocol Glucagon (Glucagen Diagnostic Kit) 0 mg IM STAT PRN; Protocol PRN Reason: Hypoglycemia Protocol Guaifenesin (Robitussin) 100 mg PO Q4H PRN PRN Reason: Cough Last Admin: 08/01/18 02:02 Dose: 100 mg Heparin Sodium (Porcine) (Heparin) 5,000 units SC Q8 [facility] Last Admin: 08/01/18 13:26 Dose: 5,000 units Hydrochlorothiazide (Microzide) 12.5 mg PO DAILY [facility] Last Admin: 08/01/18 10:09 Dose: 12.5 mg Azithromycin 500 mg/ Sodium (Chloride) 250 mls @ 250 mls/hr IVPB DAILY [facility]; Protocol Last Admin: 08/01/18 10:12 Dose: 250 mls/hr Dextrose (Dextrose 5% In Water 1000 Ml) 1,000 mls @ 0 mls/hr IV .Q0M PRN; Protocol PRN Reason: Hypoglycemia Protocol Insulin Aspart (Novolog) 0 unit SC ACHS [facility]; Protocol Last Admin: 08/01/18 11:42 Dose: Not Given Losartan Potassium (Cozaar) 50 mg PO DAILY [facility] Last Admin: 08/01/18 10:10 Dose: 50 mg Pantoprazole Sodium (Protonix Ec Tab) 40 mg PO DAILY [facility] Last Admin: 08/01/18 10:10 Dose: 40 mg Sitagliptin Phosphate (Januvia) 100 mg PO DAILY [facility] Last Admin: 08/01/18 10:10 Dose: Not Given Physical Exam - Constitutional Appears: Well - Head Exam Head Exam: ATRAUMATIC, NORMAL INSPECTION, NORMOCEPHALIC - Eye Exam Eye Exam: EOMI, Normal appearance, PERRL Pupil Exam: NORMAL ACCOMODATION, PERRL - ENT Exam ENT Exam: Mucous Membranes Moist, Normal Exam - Neck Exam Neck exam: Positive for: Normal Inspection - Respiratory Exam Respiratory Exam: Clear to Auscultation Bilateral, NORMAL BREATHING PATTERN - Cardiovascular Exam Cardiovascular Exam: REGULAR RHYTHM, +S1, +S2 - GI/Abdominal Exam GI & Abdominal Exam: Normal Bowel Sounds, Soft. absent: Tenderness - Extremities Exam Extremities exam: Positive for: normal inspection - Back Exam Back exam: NORMAL INSPECTION - Neurological Exam Neurological exam: Alert, CN II-XII Intact, Normal Gait, Oriented x3, Reflexes Normal - Psychiatric Exam Psychiatric exam: Normal Affect, Normal Mood - Skin Skin Exam: Dry, Intact, Normal Color, Warm Results - Vital Signs Recent Vital Signs: Last Vital Signs Temp 99.7 F H 08/01/18 08:30 Pulse 89 08/01/18 11:28 Resp 20 08/01/18 08:30 BP 170/89 H 08/01/18 08:30 Pulse Ox 94 L 08/01/18 08:30 - Labs Result Diagrams: 08/01/18 05:59 08/01/18 05:59 Labs: Laboratory Results - last 24 hr 07/31/18 07/31/18 07/31/18 13:44 13:44 13:44 WBC 5.6 RBC 4.06 L Hgb 13.9 Hct 38.2 MCV 94.1 H MCH 34.3 H MCHC 36.5 RDW 13.2 Plt Count 116 L D MPV 8.2 Neut % (Auto) 80.8 H Lymph % (Auto) 7.0 L [place] % (Auto) 11.7 H Eos % (Auto) 0.0 Baso % (Auto) 0.5 Neut # (Auto) 4.5 Lymph # (Auto) 0.4 L [place] # (Auto) 0.7 Eos # (Auto) 0.0 Baso # (Auto) 0.0 Neutrophils % (Manual) 69 Band Neutrophils % 10 H Lymphocytes % (Manual) 7 L Reactive Lymphs % 1 H Monocytes % (Manual) 13 H Platelet Estimate Slightly decreased L D-Dimer, Quantitative 1038 H Puncture Site pCO2 pO2 HCO3 ABG pH ABG Total CO2 ABG O2 Saturation ABG Base Excess Alfonso Test ABG Potassium A-a O2 Difference Respiratory Index Glucose Lactate Liter Flow FiO2 Sodium 139 Potassium 3.9 Chloride 100 Carbon Dioxide 29 Anion Gap 15 BUN 17 Creatinine 0.9 Est GFR ( Amer) > 60 Est GFR (Non-Af Amer) > 60 POC Glucose (mg/dL) Random Glucose 114 H D Calcium 8.8 Phosphorus Magnesium Total Bilirubin 0.8 AST 55 ALT 75 H Alkaline Phosphatase 48 Total Creatine Kinase 98 CK-MB (Mass) < 0.22 Troponin I < 0.0120 Total Protein 6.7 Albumin 3.7 Globulin 3.0 Albumin/Globulin Ratio 1.2 Triglycerides Cholesterol LDL Cholesterol Direct HDL Cholesterol Free T4 Free T3 pg/mL TSH 3rd Generation Arterial Blood Potassium Urine Color Urine Clarity Urine pH Ur Specific [place] Urine Protein Urine Glucose (UA) Urine Ketones Urine Blood Urine Nitrate Urine Bilirubin Urine Urobilinogen Ur Leukocyte Esterase Urine WBC (Auto) Urine RBC (Auto) Ur Squamous Epith Cells Urine Opiates Screen Urine Methadone Screen Ur Barbiturates Screen Ur Phencyclidine Scrn Ur Amphetamines Screen U Benzodiazepines Scrn U Oth Cocaine Metabols U Cannabinoids Screen Infectious [place] Assay Grp A Beta Strep Ag 07/31/18 07/31/18 07/31/18 15:41 15:41 16:47 WBC RBC Hgb Hct MCV MCH MCHC RDW Plt Count MPV Neut % (Auto) Lymph % (Auto) [place] % (Auto) Eos % (Auto) Baso % (Auto) Neut # (Auto) Lymph # (Auto) [place] # (Auto) Eos # (Auto) Baso # (Auto) Neutrophils % (Manual) Band Neutrophils % Lymphocytes % (Manual) Reactive Lymphs % Monocytes % (Manual) Platelet Estimate D-Dimer, Quantitative Puncture Site pCO2 pO2 HCO3 ABG pH ABG Total CO2 ABG O2 Saturation ABG Base Excess Alfonso Test ABG Potassium A-a O2 Difference Respiratory Index Glucose Lactate Liter Flow FiO2 Sodium Potassium Chloride Carbon Dioxide Anion Gap BUN Creatinine Est GFR ( Amer) Est GFR (Non-Af Amer) POC Glucose (mg/dL) 93 Random Glucose Calcium Phosphorus Magnesium Total Bilirubin AST ALT Alkaline Phosphatase Total Creatine Kinase CK-MB (Mass) Troponin I Total Protein Albumin Globulin Albumin/Globulin Ratio Triglycerides Cholesterol LDL Cholesterol Direct HDL Cholesterol Free T4 Free T3 pg/mL TSH 3rd Generation Arterial Blood Potassium Urine Color Audrey Urine Clarity Hazy Urine pH 5.0 Ur Specific [place] 1.032 H Urine Protein 2+ H Urine Glucose (UA) 1+ H Urine Ketones 1+ H Urine Blood Negative Urine Nitrate Negative Urine Bilirubin Negative Urine Urobilinogen 4.0 Ur Leukocyte Esterase Neg Urine WBC (Auto) 7 H Urine RBC (Auto) 2 Ur Squamous Epith Cells 1 Urine Opiates Screen Negative Urine Methadone Screen Negative Ur Barbiturates Screen Negative Ur Phencyclidine Scrn Negative Ur Amphetamines Screen Positive H U Benzodiazepines Scrn Negative U Oth Cocaine Metabols Negative U Cannabinoids Screen Negative Infectious [place] Assay Grp A Beta Strep Ag 07/31/18 07/31/18 08/01/18 17:50 23:21 05:59 WBC 4.6 L RBC 3.90 L Hgb 12.9 Hct 35.8 MCV 91.7 D MCH 33.0 H MCHC 36.0 RDW 13.6 Plt Count 101 L MPV 7.6 Neut % (Auto) 77.1 H Lymph % (Auto) 11.1 L [place] % (Auto) 11.3 H Eos % (Auto) 0.0 Baso % (Auto) 0.5 Neut # (Auto) 3.6 Lymph # (Auto) 0.5 L [place] # (Auto) 0.5 Eos # (Auto) 0.0 Baso # (Auto) 0.0 Neutrophils % (Manual) Band Neutrophils % Lymphocytes % (Manual) Reactive Lymphs % Monocytes % (Manual) Platelet Estimate D-Dimer, Quantitative Puncture Site pCO2 pO2 HCO3 ABG pH ABG Total CO2 ABG O2 Saturation ABG Base Excess Alfonso Test ABG Potassium A-a O2 Difference Respiratory Index Glucose Lactate Liter Flow FiO2 Sodium Potassium Chloride Carbon Dioxide Anion Gap BUN Creatinine Est GFR ( Amer) Est GFR (Non-Af Amer) POC Glucose (mg/dL) Random Glucose Calcium Phosphorus Magnesium Total Bilirubin AST ALT Alkaline Phosphatase Total Creatine Kinase 99 CK-MB (Mass) 0.31 Troponin I < 0.0120 Total Protein Albumin Globulin Albumin/Globulin Ratio Triglycerides Cholesterol LDL Cholesterol Direct HDL Cholesterol Free T4 Free T3 pg/mL TSH 3rd Generation Arterial Blood Potassium Urine Color Urine Clarity Urine pH Ur Specific [place] Urine Protein Urine Glucose (UA) Urine Ketones Urine Blood Urine Nitrate Urine Bilirubin Urine Urobilinogen Ur Leukocyte Esterase Urine WBC (Auto) Urine RBC (Auto) Ur Squamous Epith Cells Urine Opiates Screen Urine Methadone Screen Ur Barbiturates Screen Ur Phencyclidine Scrn Ur Amphetamines Screen U Benzodiazepines Scrn U Oth Cocaine Metabols U Cannabinoids Screen Infectious [place] Assay Negative Grp A Beta Strep Ag Negative 08/01/18 08/01/18 08/01/18 05:59 05:59 06:45 WBC RBC Hgb Hct MCV MCH MCHC RDW Plt Count MPV Neut % (Auto) Lymph % (Auto) [place] % (Auto) Eos % (Auto) Baso % (Auto) Neut # (Auto) Lymph # (Auto) [place] # (Auto) Eos # (Auto) Baso # (Auto) Neutrophils % (Manual) Band Neutrophils % Lymphocytes % (Manual) Reactive Lymphs % Monocytes % (Manual) Platelet Estimate D-Dimer, Quantitative Puncture Site pCO2 pO2 HCO3 ABG pH ABG Total CO2 ABG O2 Saturation ABG Base Excess Alfonso Test ABG Potassium A-a O2 Difference Respiratory Index Glucose Lactate Liter Flow FiO2 Sodium 133 Potassium 3.4 L Chloride 101 Carbon Dioxide 25 Anion Gap 10 BUN 11 Creatinine 0.6 L Est GFR ( Amer) > 60 Est GFR (Non-Af Amer) > 60 POC Glucose (mg/dL) 91 Random Glucose 90 D Calcium 8.2 L Phosphorus 1.9 L Magnesium 1.8 Total Bilirubin 0.5 AST 56 ALT 74 H Alkaline Phosphatase 50 Total Creatine Kinase 134 CK-MB (Mass) 0.39 Troponin I 0.0170 Total Protein 6.5 Albumin 3.5 Globulin 3.0 Albumin/Globulin Ratio 1.2 Triglycerides 59 D Cholesterol 91 LDL Cholesterol Direct 55 HDL Cholesterol 26 L Free T4 0.97 Free T3 pg/mL 2.39 L TSH 3rd Generation 0.99 Arterial Blood Potassium Urine Color Urine Clarity Urine pH Ur Specific [place] Urine Protein Urine Glucose (UA) Urine Ketones Urine Blood Urine Nitrate Urine Bilirubin Urine Urobilinogen Ur Leukocyte Esterase Urine WBC (Auto) Urine RBC (Auto) Ur Squamous Epith Cells Urine Opiates Screen Urine Methadone Screen Ur Barbiturates Screen Ur Phencyclidine Scrn Ur Amphetamines Screen U Benzodiazepines Scrn U Oth Cocaine Metabols U Cannabinoids Screen Infectious [place] Assay Grp A Beta Strep Ag 08/01/18 08/01/18 11:24 13:10 WBC RBC Hgb Hct MCV MCH MCHC RDW Plt Count MPV Neut % (Auto) Lymph % (Auto) [place] % (Auto) Eos % (Auto) Baso % (Auto) Neut # (Auto) Lymph # (Auto) [place] # (Auto) Eos # (Auto) Baso # (Auto) Neutrophils % (Manual) Band Neutrophils % Lymphocytes % (Manual) Reactive Lymphs % Monocytes % (Manual) Platelet Estimate D-Dimer, Quantitative Puncture Site Lr pCO2 34 L pO2 75 L HCO3 26.6 ABG pH 7.48 H ABG Total CO2 26.3 ABG O2 Saturation 97.6 ABG Base Excess 2.2 Alfonso Test Pos ABG Potassium 2.9 L A-a O2 Difference 111.0 Respiratory Index 1.5 Glucose 153 H Lactate 1.1 Liter Flow 3.0 FiO2 32.0 Sodium 132.0 Potassium Chloride 101.0 Carbon Dioxide Anion Gap BUN Creatinine Est GFR ( Amer) Est GFR (Non-Af Amer) POC Glucose (mg/dL) 114 H Random Glucose Calcium Phosphorus Magnesium Total Bilirubin AST ALT Alkaline Phosphatase Total Creatine Kinase CK-MB (Mass) Troponin I Total Protein Albumin Globulin Albumin/Globulin Ratio Triglycerides Cholesterol LDL Cholesterol Direct HDL Cholesterol Free T4 Free T3 pg/mL TSH 3rd Generation Arterial Blood Potassium 2.9 L Urine Color Urine Clarity Urine pH Ur Specific [place] Urine Protein Urine Glucose (UA) Urine Ketones Urine Blood Urine Nitrate Urine Bilirubin Urine Urobilinogen Ur Leukocyte Esterase Urine WBC (Auto) Urine RBC (Auto) Ur Squamous Epith Cells Urine Opiates Screen Urine Methadone Screen Ur Barbiturates Screen Ur Phencyclidine Scrn Ur Amphetamines Screen U Benzodiazepines Scrn U Oth Cocaine Metabols U Cannabinoids Screen Infectious [place] Assay Grp A Beta Strep Ag Assessment & Plan (1) Vasovagal reaction Assessment and Plan: No further recommendations. Thank you for this consultation. Status: Acute
--- NOTE | 2018-08-01 22:57 | CARD ---
APPROVED REPORT Date of service: 08/01/2018 EXAM: Two-dimensional and M-mode echocardiogram with Doppler and color Doppler. Other Information Quality : GoodRhythm : NSR INDICATION Dizziness and Vertigo Fatigue Syncope 2D DIMENSIONS IVSd1.6 (0.7-1.1cm)LVDd4.3 (3.9-5.9cm) PWd1.5 (0.7-1.1cm)IVSs3.0 (0.8-1.2cm) LA Vkiqyl33 (18-58mL)LVDs2.6 (2.5-4.0cm) FS (%) 38.1 %LVEF (%)68.6 (>50%) M-Mode DIMENSIONS Left Atrium (MM)4.06 (2.5-4.0cm)IVSd1.15 (0.7-1.1cm) Aortic Root3.16 (2.2-3.7cm)LVDd3.96 (4.0-5.6cm) Aortic Cusp Exc.2.08 (1.5-2.0cm)PWd1.28 (0.7-1.1cm) FS (%) 30 %LVDs2.78 (2.0-3.8cm) LVEF (%)58 (>50%) Aortic Valve AoV Peak [id number]/Hao Peak GR.9mmHg Mitral Valve E/A ratio0.0 TDI E/Lateral E'0.0E/Medial E'0.0 Tricuspid Valve TR Peak [id number]/sTR Peak [id number] LEFT VENTRICLE The left ventricle is normal size. There is normal left ventricular wall thickness. Left ventricle systolic function is normal. The Ejection Fraction is 65-70%. There is normal LV segmental wall motion. The left ventricular diastolic function is normal. RIGHT VENTRICLE The right ventricle is normal size. There is normal right ventricular wall thickness. The right ventricular systolic function is normal. ATRIA The left atrium size is normal. The right atrium size is normal. The interatrial septum is intact with no evidence for an atrial septal defect. AORTIC VALVE The aortic valve is normal in structure. No aortic regurgitation is present. There is no aortic valvular stenosis. MITRAL VALVE The mitral valve is normal in structure. There is no evidence of mitral valve prolapse. There is no mitral valve stenosis. Mitral regurgitation is mild. TRICUSPID VALVE The tricuspid valve is normal in structure. There is trace tricuspid regurgitation. Right ventricular systolic pressure is estimated at 30-40 mmHg. There is mild pulmonary hypertension. PULMONIC VALVE The pulmonic valve is not well visualized. There is no pulmonic valvular regurgitation. GREAT VESSELS The aortic root is normal in size. PERICARDIAL EFFUSION There is no significant pericardial effusion. <Conclusion> Left ventricle systolic function is normal. The Ejection Fraction is 65-70%. No aortic regurgitation is present. Mitral regurgitation is mild. There is trace tricuspid regurgitation. There is mild pulmonary hypertension. There is no pulmonic valvular regurgitation.
[2018-08-02] MEDS: (Novolog) Insulin Aspart, Recombinant 100 u/ml 10 ml vial SC SCH ×4 (07:35→22:00)
[2018-08-02 08:04] LABS: BASO % 0.8 % (0.0-2.0); HEMOGLOBIN 13.3 g/dL (12.0-18.0); LYMPH # 0.9 K/uL (1.0-4.3); LYMPH % 19.4 % (20.0-40.0); MEAN CELL VOLUME 92.1 fL (80.0-94.0); MEAN CORPUSCULAR HEMOGLOBIN 33.1 pg (27.0-31.0); MEAN CORPUSCULAR HGB CONC 35.9 g/dL (33.0-37.0); MEAN PLATELET VOLUME 7.9 fL (7.2-11.7); MONO # 0.6 K/uL (0.0-0.8); MONO % 12.8 % (0.0-10.0); NEUT # 3.1 K/uL (1.8-7.0); NRBC % 0.2 % (0.0-2.0); RBC 4.02 Mil/uL (4.40-5.90); RED CELL DISTRIBUTION WIDTH 13.4 % (11.5-14.5); WHITE BLOOD COUNT 4.7 K/uL (4.8-10.8)
[2018-08-02 08:12] LABS: ALB/GLOB RATIO 1.3 (1.0-2.1); ALBUMIN 3.4 g/dL (3.5-5.0); ALT/SGPT 65 U/L (21-72); AST/SGOT 48 U/L (17-59); BLOOD UREA NITROGEN 11 mg/dL (9-20); CALCIUM 8.6 mg/dl (8.6-10.4); GFR NON-AFRICAN AMERICAN > 60
[2018-08-02] MEDS: Pantoprazole 40 mg EC Tab PO SCH (09:37)
[2018-08-02] MEDS: Azithromycin 500 MG in Sodium Chloride 0.9% 250 ML IVPB SCH (09:41)
--- NOTE | 2018-08-02 10:01 | CP.PCM.PN ---
Subjective - Date & Time of Evaluation Date of Evaluation: 08/02/18 Time of Evaluation: 09:30 - Subjective Subjective: Patient was seen and examined by me. He was much more awake this morning, also much more talkative. He was not falling asleep mid conversation like he did yesterday He denied chest pain, denied palpitations, denied headache, denied nausea, denied vommitting. He reports + chronic back pain Exam of the eyes show pupils that are much more reactive now. No longer pinpoint Discussed with family member Karen over the speaker phone. Again discussed with the family and patient about his depression. Yesterday he said he "wanted to end it all" but insist that he did not try to deliberately overdose on his medications (which we are now holding) As mentioned previously the patient takes prescribed abilify, amphetamine, and klonopine. He said to us that he was depressed and wanted to end his life in front of me and family. He denied trying to overdose CT of the head was done and was negative. CT of the chest suggest a possible pneumonia / tree in bud appearance pattern left lower lobe. He had bandemia on the CBC. Continue on IV abx Objective - Vital Signs/Intake and Output Vital Signs (last 24 hours): Temp Pulse Resp BP Pulse Ox 98.1 F 72 20 137/82 95 08/02/18 08:23 08/02/18 08:23 08/02/18 08:23 08/02/18 08:23 08/02/18 08:23 - Medications Medications: Current Medications Acetaminophen (Tylenol 325mg Tab) 650 mg PO Q6 PRN PRN Reason: Fever >100.4 F Dextrose (Dextrose 50% Inj) 0 ml IV STAT PRN; Protocol PRN Reason: Hypoglycemia Protocol Dextrose (Glutose 15) 0 gm PO ONCE PRN; Protocol PRN Reason: Hypoglycemia Protocol Glucagon (Glucagen Diagnostic Kit) 0 mg IM STAT PRN; Protocol PRN Reason: Hypoglycemia Protocol Guaifenesin (Robitussin) 100 mg PO Q4H PRN PRN Reason: Cough Last Admin: 08/01/18 02:02 Dose: 100 mg Heparin Sodium (Porcine) (Heparin) 5,000 units SC Q8 [facility] Last Admin: 08/02/18 06:43 Dose: 5,000 units Hydrochlorothiazide (Microzide) 12.5 mg PO DAILY [facility] Last Admin: 08/02/18 09:38 Dose: 12.5 mg Azithromycin 500 mg/ Sodium (Chloride) 250 mls @ 250 mls/hr IVPB DAILY [facility]; Protocol Last Admin: 08/02/18 09:41 Dose: 250 mls/hr Dextrose (Dextrose 5% In Water 1000 Ml) 1,000 mls @ 0 mls/hr IV .Q0M PRN; Protocol PRN Reason: Hypoglycemia Protocol Insulin Aspart (Novolog) 0 unit SC ACHS [facility]; Protocol Last Admin: 08/02/18 07:35 Dose: Not Given Losartan Potassium (Cozaar) 50 mg PO DAILY [facility] Last Admin: 08/02/18 09:38 Dose: 50 mg Pantoprazole Sodium (Protonix Ec Tab) 40 mg PO DAILY [facility] Last Admin: 08/02/18 09:37 Dose: 40 mg - Labs Labs: 08/02/18 07:47 08/02/18 07:47 - Constitutional Appears: No Acute Distress, Unkempt, Older Than Stated Age, Chronically Ill - Head Exam Head Exam: NORMAL INSPECTION, NORMOCEPHALIC - Eye Exam Eye Exam: EOMI, Normal appearance - ENT Exam ENT Exam: Mucous Membranes Moist - Respiratory Exam Respiratory Exam: Clear to Ausculation Bilateral, NORMAL BREATHING PATTERN - Cardiovascular Exam Cardiovascular Exam: REGULAR RHYTHM - GI/Abdominal Exam GI & Abdominal Exam: Soft, Normal Bowel Sounds. absent: Distended, Firm, Guarding, Rigid, Tenderness - Neurological Exam Neurological Exam: Alert, Awake, Oriented x3 Neuro motor strength exam: Left Upper Extremity: 5, Right Upper Extremity: 5, Left Lower Extremity: 5, Right Lower Extremity: 5 - Psychiatric Exam Psychiatric exam: Normal Affect, Normal Mood - Skin Skin Exam: Normal Color, Warm Assessment and Plan - Assessment and Plan (Free Text) Assessment: 63 y o M PMhx arthritis, depression, DM2, gastritis, Hep C (s/p tx, neg viral load), HTN, sleep apnea, who presented to the ED s/p syncopal episode. R/o neurogenic, cardiogenic causes. Plan: Pneumonia / Tree in bud appearance 08/02: WBC stable, left shift is now resolving. No fevers, continue with IV azithromycin, IV ceftriaxone for now. Blood cultures, atypical cultures, throat cultures negative for now. Also the rapid strep negative as well. As mentioned yesterday we are holding his medications for depression, anxiety and he appears much more awake this morning. HIV negative 08/01: Initially had bandemia seen. WBC is otherwise low. For now continue on the Azithromycin and Rocpehin. Check also HIV 1,2 and the atypical studies as well. Pending the blood cultures and urine cultures. Will need to get a pulmonary evaluation as well. Considering what the family tell us about his prolonged sleeping, snorring, and taking of several medications for depression, anxiety, and his sleeping disorders - suspect he has had aspiration pneumonia for some time now. Hold off on respiratory depressant medication. I told the family and patient I'd rather him anxious for a little bit then risk depressing his respirations more. CT angio chest: no evidence of acute central PE. Linear discoid atelectasis seen in L upper lobe and lingular region. Some tree-in-bud opacities in the L radha ng base. Elliptical shaped nodule seen in R middle lobe region that measures approx 8x5.1 mm which appears to be assoc. w/ some linear scarring extends to the pleural surface. Recommend f/u CT scan at 6 mo interval. Wall thickening of distal esophagus, recommend f/u of endoscopy to exclude esophagitis or other intrinsic/invasive wall lesion. Hx Depression and Insomnia - Suicidal Ideation 08/02: Today much more awake, alert. We again discussed and he insist he did not deliberately take more than prescirbed 08/01: Patient in front of me and my colleague and also witnessed by family member Viv said he wanted to end his life. He then denied trying to overdose on his klonopine, amphetamine, or abilify. On exam he has pinpoint pupils. It is possible his weakness and fatige past couple of weeks is from being overly prescibred - or he really is deliberately taking excessive medication Hold off on the klonopine, abilify, and amphetamine at this time Syncope 08/02: Echo returned, left ventricualr systolic function is ok. The EF is reported as 65%, trace mitral and tricupsid regurgitatio. Mild pulmonary HTN Orthostatics were ok. 08/01: This morning had echo done. Pending read. IVF held because the blood pressure is relatively elevated. Will get a PT evaluation. Also CT done yesterday and this was stable, no mass or bleeding or infact We are pending cardiology and neurology evaluation We can repeat the orthostatics He may be overly presrscried medications / or deliberatly taking too much URI symptoms 08/01: Rapid strep A study was negative. Pending cultures at this time Continue Rocpehin and Azithromycin U/A: increased specific gravity, 2+ protein, 1+ glucose, 1+ ketones, WBC 7, neg for LE or nitrites Thrombocytopenia 08/01: Continue to monitor platelets, 116,000 on admission Hx DM2 08/02: Hgb A1C was 5.6, Holding on the glipizide, metformin and januivia for the time being. 08/01: For now the patient will hold off on glipizide and the metformin. His blood sugars are not elevated and he does not appear to be eating very much Hx HTN 08/01: Continue to monitor at this time. Hx Hep C No hx of cirrhosis as per pt, pt states last viral load was zero DVT/GI ppx: Heparin, SCD, Protonix
--- NOTE | 2018-08-02 10:21 | CT ---
Date of service: 08/01/2018 PROCEDURE: CT Abdomen and Pelvis without intravenous contrast HISTORY: weight loss, infection COMPARISON: None. TECHNIQUE: Multiple contiguous axial images were performed through the abdomen and pelvis without the use of intravenous contrast. Subsequently, sagittal and coronal reformatted images were obtained. Radiation dose: Total exam DLP = 1013.55 mGy-cm. This CT exam was performed using one or more of the following dose reduction techniques: Automated exposure control, adjustment of the mA and/or kV according to patient size, and/or use of iterative reconstruction technique. FINDINGS: LOWER THORAX: Mild atelectasis within the right lower lobe. Prominent ill-defined focal areas of nodular consolidation seen within the inferior left upper lobe and left lower lobe suggestive for infiltrate. Post treatment interval follow-up would be helpful to ensure resolution and exclude underlying lesion. LIVER: Multiple prominent nodular calcifications seen throughout the liver. Fatty infiltration of the liver. Prominent liver. GALLBLADDER AND BILE DUCTS: Contracted gallbladder. PANCREAS: Unremarkable. No gross lesion or ductal dilatation. SPLEEN: Prominent spleen. ADRENALS: Nodular thickening of the adrenal glands. 1.7 centimeter left adrenal nodule demonstrating a Hounsfield unit attenuation of 4, nonspecific, possibly an adenoma. This may be better delineated with multiphasic CT or MR if clinically indicated. KIDNEYS AND URETERS: 3 millimeter nonobstructive calculus in the midpole of the right kidney. VASCULATURE: Atherosclerotic calcification and plaque within the aorta. BOWEL: Small hiatal hernia. Thickening of the distal esophagus. Fecal retention in the colon. Colonic diverticuli. Focal thickening versus underdistention of the colon at the level of the distal ascending/hepatic flexure as demonstrated on series 4, image 70. Clinical correlation. Correlation with colonoscopy may be helpful if clinically indicated. APPENDIX: Unremarkable. Normal appendix. PERITONEUM: Unremarkable. No free fluid. No free air. LYMPH NODES: Unremarkable. No enlarged lymph nodes. BLADDER: Unremarkable. REPRODUCTIVE: Prominent heterogeneous prostate. BONES: Degenerative changes in the spine. Bridging sclerosis of the bilateral SI joints. Loss of height of the superior endplate of the T11 vertebral body. OTHER FINDINGS: None. IMPRESSION: 1. Prominent ill-defined focal areas of nodular consolidation seen within the inferior left upper lobe and left lower lobe of the lung suggestive for infiltrate. Post treatment interval follow-up would be helpful to ensure resolution and exclude underlying lesion. 2. Fecal retention in the colon. Colonic diverticuli. Focal thickening versus underdistention of the colon at the level of the distal ascending/hepatic flexure as demonstrated on series 4, image 70. Clinical correlation. Correlation with colonoscopy may be helpful if clinically indicated. 3. Small hiatal hernia. Thickening of the distal esophagus. Clinical correlation. 4. Multiple prominent nodular calcifications seen throughout the liver. Fatty infiltration of the liver. Prominent liver. 5. 1.7 centimeter left adrenal nodule demonstrating a Hounsfield unit attenuation of 4, nonspecific, possibly an adenoma. This may be better delineated with multiphasic CT or MR if clinically indicated. 6. 3 millimeter nonobstructive calculus in the midpole of the right kidney. 7. Prominent heterogeneous prostate. Clinical correlation. 8. Loss of height of the superior endplate of the T11 vertebral body. Clinical correlation. Additional findings as above. A preliminary report was generated at 8:26 p.m. on 08/01/[address] Juan Jose Quintero from [employer].
--- NOTE | 2018-08-02 15:44 | CP.PCM.CON ---
History of Present Illness - History of Present Illness History of Present Illness: Reason For Consultation: Syncope 63 y o M PMhx arthritis, depression, DM2, gastritis, Hep C (s/p tx, neg viral load), HTN, sleep apnea, who presented to the ED s/p syncopal episode. Per report, pt was in PMD Dr. Begum office today and was having blood drawn when he had this syncopal episode. Denies hx of this occurring before. Pt reports he has not been feeling well for the past several days, c/o associated body aches and weakness. Reports dry cough without sputum x 1 week. Pt also reports chronic hx of low back pain that has been worsening for the past 4 days, thus bringing him to his PMDs office to be evaluated. Reports subjective fevers. Admits to sob that is worsened when he lies flat in bed at night, states having several pillows underneath his head does not help w/ symptoms. Denies headache, chest pain, n/v/d/c, abd pain, urinary complaints, or other symptoms. Reports being prescribed CPAP machine in the past but has not used it. 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 Shipman Pharmacy: [facility]) Present on Admission - Present on Admission Any Indicators Present on Admission: Yes History of Uncontrolled Diabetes: Yes Review of Systems - Constitutional Constitutional: Chills, Fatigue, Fever, Headache, Malaise - Cardiovascular Cardiovascular: Dyspnea, Syncope. absent: Chest Pain - Respiratory Respiratory: Cough, Dyspnea. absent: Chest Congestion, Excessive Mucous Production - Gastrointestinal Gastrointestinal: absent: Abdominal Pain, Constipation, Diarrhea, Nausea, Vomiting - Genitourinary Genitourinary: absent: Change in Urinary Stream, Difficulty Urinating, Dysuria Meds Allergies/Adverse Reactions: Allergies Allergy/AdvReac Type Severity Reaction Status Date / Time No Known Allergies Allergy Verified 07/31/18 12:42 Physical Exam - Constitutional Appears: Non-toxic, No Acute Distress - Head Exam Head Exam: ATRAUMATIC, NORMOCEPHALIC - Eye Exam Eye Exam: EOMI, Normal appearance, PERRL - ENT Exam ENT Exam: Mucous Membranes Moist, Normal Oropharynx, TM's Normal Bilaterally - Respiratory Exam Respiratory Exam: Clear to Auscultation Bilateral, NORMAL BREATHING PATTERN. a bsent: Rales, Rhonchi, Wheezes - Cardiovascular Exam Cardiovascular Exam: REGULAR RHYTHM, +S1, +S2. absent: Gallop, Rubs, Systolic Murmur - GI/Abdominal Exam GI & Abdominal Exam: Normal Bowel Sounds, Soft. absent: Distended, Organomegaly, Tenderness - Extremities Exam Extremities exam: Positive for: full ROM, normal capillary refill, normal inspection, pedal pulses present. Negative for: pedal edema - Back Exam Back exam: FULL ROM, NORMAL INSPECTION. absent: paraspinal tenderness - Neurological Exam Neurological exam: Alert, CN II-XII Intact, Oriented x3, Reflexes Normal - Skin Skin Exam: Dry, Intact, Warm Past Patient History - Infectious Disease Hx of Infectious Diseases: None - Past Medical History & Family History Past Medical History?: Yes - Past Social History Smoking Status: Former Smoker - CARDIAC Hx Cardiac Disorders: Yes Hx Hypertension: Yes - PULMONARY Hx Respiratory Disorders: No - NEUROLOGICAL Hx Neurological Disorder: No - HEENT Hx HEENT Problems: No - RENAL Hx Chronic Kidney Disease: No - ENDOCRINE/METABOLIC Hx Endocrine Disorders: Yes Hx Diabetes Mellitus Type 2: Yes - HEMATOLOGICAL/ONCOLOGICAL Hx Blood Disorders: Yes Hx Blood Transfusions: Yes Hx Blood Transfusion Reaction: No Hx Hepatitis C: Yes - INTEGUMENTARY Hx Dermatological Problems: No - MUSCULOSKELETAL/RHEUMATOLOGICAL Hx Musculoskeletal Disorders: Yes Hx Arthritis: Yes Hx Falls: No - GASTROINTESTINAL Hx Gastrointestinal Disorders: Yes Hx Gastritis: Yes - GENITOURINARY/GYNECOLOGICAL Hx Genitourinary Disorders: No - PSYCHIATRIC Hx Psychophysiologic Disorder: Yes Hx Depression: Yes Hx Substance Use: Yes Other/Comment: quit 25 years ago - SURGICAL HISTORY Hx Surgeries: Yes Hx Musculoskeletal Surgery: Yes (Left elbow 05/17 07/17) Hx Orthopedic Surgery: Yes (R shoulder 2014 left shoulder) - ANESTHESIA Hx Anesthesia: Yes Hx Anesthesia Reactions: No Hx Malignant Hyperthermia: No Meds Allergies/Adverse Reactions: Allergies Allergy/AdvReac Type Severity Reaction Status Date / Time No Known Allergies Allergy Verified 07/31/18 12:42 - Medications Medications: Current Medications Acetaminophen (Tylenol 325mg Tab) 650 mg PO Q6 PRN PRN Reason: Fever >100.4 F Dextrose (Dextrose 50% Inj) 0 ml IV STAT PRN; Protocol PRN Reason: Hypoglycemia Protocol Dextrose (Glutose 15) 0 gm PO ONCE PRN; Protocol PRN Reason: Hypoglycemia Protocol Glucagon (Glucagen Diagnostic Kit) 0 mg IM STAT PRN; Protocol PRN Reason: Hypoglycemia Protocol Guaifenesin (Robitussin) 100 mg PO Q4H PRN PRN Reason: Cough Last Admin: 08/01/18 02:02 Dose: 100 mg Heparin Sodium (Porcine) (Heparin) 5,000 units SC Q8 [facility] Last Admin: 08/02/18 06:43 Dose: 5,000 units Hydrochlorothiazide (Microzide) 12.5 mg PO DAILY [facility] Last Admin: 08/02/18 09:38 Dose: 12.5 mg Azithromycin 500 mg/ Sodium (Chloride) 250 mls @ 250 mls/hr IVPB DAILY [facility]; Protocol Last Admin: 08/02/18 09:41 Dose: 250 mls/hr Dextrose (Dextrose 5% In Water 1000 Ml) 1,000 mls @ 0 mls/hr IV .Q0M PRN; Protocol PRN Reason: Hypoglycemia Protocol Insulin Aspart (Novolog) 0 unit SC ACHS [facility]; Protocol Last Admin: 08/02/18 13:06 Dose: Not Given Losartan Potassium (Cozaar) 50 mg PO DAILY [facility] Last Admin: 08/02/18 09:38 Dose: 50 mg Pantoprazole Sodium (Protonix Ec Tab) 40 mg PO DAILY [facility] Last Admin: 08/02/18 09:37 Dose: 40 mg Results - Vital Signs Recent Vital Signs: Last Vital Signs Temp 98.1 F 08/02/18 08:23 Pulse 72 08/02/18 08:23 Resp 18 08/02/18 14:38 BP 137/82 08/02/18 08:23 Pulse Ox 95 08/02/18 08:23 - Labs Result Diagrams: 08/02/18 07:47 08/02/18 07:47 Labs: Laboratory Results - last 24 hr 08/01/18 08/01/18 08/01/18 05:59 13:41 15:48 WBC RBC Hgb Hct MCV MCH MCHC RDW Plt Count MPV Neut % (Auto) Lymph % (Auto) [place] % (Auto) Eos % (Auto) Baso % (Auto) Neut # (Auto) Lymph # (Auto) [place] # (Auto) Eos # (Auto) Baso # (Auto) Sodium Potassium Chloride Carbon Dioxide Anion Gap BUN Creatinine Est GFR ( Amer) Est GFR (Non-Af Amer) POC Glucose (mg/dL) 127 H Random Glucose Hemoglobin A1c 5.4 Calcium Phosphorus Magnesium Total Bilirubin AST ALT Alkaline Phosphatase Total Protein Albumin Globulin Albumin/Globulin Ratio HIV 1&2 Antibody Screen Negative Ur L.pneumophila Ag S. pneumoniae Antigen 08/01/18 08/01/18 08/01/18 17:39 17:39 20:58 WBC RBC Hgb Hct MCV MCH MCHC RDW Plt Count MPV Neut % (Auto) Lymph % (Auto) [place] % (Auto) Eos % (Auto) Baso % (Auto) Neut # (Auto) Lymph # (Auto) [place] # (Auto) Eos # (Auto) Baso # (Auto) Sodium Potassium Chloride Carbon Dioxide Anion Gap BUN Creatinine Est GFR ( Amer) Est GFR (Non-Af Amer) POC Glucose (mg/dL) 145 H Random Glucose Hemoglobin A1c Calcium Phosphorus Magnesium Total Bilirubin AST ALT Alkaline Phosphatase Total Protein Albumin Globulin Albumin/Globulin Ratio HIV 1&2 Antibody Screen Ur L.pneumophila Ag Negative S. pneumoniae Antigen Negative 08/02/18 08/02/18 08/02/18 06:51 07:47 07:47 WBC 4.7 L RBC 4.02 L Hgb 13.3 Hct 37.0 MCV 92.1 MCH 33.1 H MCHC 35.9 RDW 13.4 Plt Count 101 L MPV 7.9 Neut % (Auto) 67.0 Lymph % (Auto) 19.4 L [place] % (Auto) 12.8 H Eos % (Auto) 0.0 Baso % (Auto) 0.8 Neut # (Auto) 3.1 Lymph # (Auto) 0.9 L [place] # (Auto) 0.6 Eos # (Auto) 0.0 Baso # (Auto) 0.0 Sodium 136 Potassium 3.7 Chloride 95 L Carbon Dioxide 32 H Anion Gap 13 BUN 11 Creatinine 0.7 L Est GFR ( Amer) > 60 Est GFR (Non-Af Amer) > 60 POC Glucose (mg/dL) 112 H Random Glucose 169 H D Hemoglobin A1c Calcium 8.6 Phosphorus 2.2 L Magnesium 2.0 Total Bilirubin 0.6 AST 48 ALT 65 Alkaline Phosphatase 47 Total Protein 6.0 L Albumin 3.4 L Globulin 2.6 Albumin/Globulin Ratio 1.3 HIV 1&2 Antibody Screen Ur L.pneumophila Ag S. pneumoniae Antigen 08/02/18 12:09 WBC RBC Hgb Hct MCV MCH MCHC RDW Plt Count MPV Neut % (Auto) Lymph % (Auto) [place] % (Auto) Eos % (Auto) Baso % (Auto) Neut # (Auto) Lymph # (Auto) [place] # (Auto) Eos # (Auto) Baso # (Auto) Sodium Potassium Chloride Carbon Dioxide Anion Gap BUN Creatinine Est GFR ( Amer) Est GFR (Non-Af Amer) POC Glucose (mg/dL) 143 H Random Glucose Hemoglobin A1c Calcium Phosphorus Magnesium Total Bilirubin AST ALT Alkaline Phosphatase Total Protein Albumin Globulin Albumin/Globulin Ratio HIV 1&2 Antibody Screen Ur L.pneumophila Ag S. pneumoniae Antigen Assessment & Plan - Assessment and Plan (Free Text) Assessment: Syncope ECHO: Normal EF Trops negative EKG unremarkable Unlikely cardiac etiology [place] monitor Pneumonia / Tree in bud appearance 08/02: WBC stable, left shift is now resolving. No fevers, continue with IV azithromycin, IV ceftriaxone for now. Blood cultures, atypical cultures, throat cultures negative for now. Also the rapid strep negative as well. As mentioned yesterday we are holding his medications for depression, anxiety and he appears much more awake this morning. HIV negative 08/01: Initially had bandemia seen. WBC is otherwise low. For now continue on the Azithromycin and Rocpehin. Check also HIV 1,2 and the atypical studies as well. Pending the blood cultures and urine cultures. Will need to get a pulmonary evaluation as well. Considering what the family tell us about his prolonged sleeping, snorring, and taking of several medications for depression, anxiety, and his sleeping d isorders - suspect he has had aspiration pneumonia for some time now. Hold off on respiratory depressant medication. I told the family and patient I'd rather him anxious for a little bit then risk depressing his respirations more. CT angio chest: no evidence of acute central PE. Linear discoid atelectasis seen in L upper lobe and lingular region. Some tree-in-bud opacities in the L lung base. Elliptical shaped nodule seen in R middle lobe region that measures approx 8x5.1 mm which appears to be assoc. w/ some linear scarring extends to the pleural surface. Recommend f/u CT scan at 6 mo interval. Wall thickening of distal esophagus, recommend f/u of endoscopy to exclude esophagitis or other intrinsic/invasive wall lesion. Hx Depression and Insomnia - Suicidal Ideation 6: Today much more awake, alert. We again discussed and he insist he did not deliberately take more than prescirbed 08/01: Patient in front of me and my colleague and also witnessed by family member Viv said he wanted to end his life. He then denied trying to overdose on his klonopine, amphetamine, or abilify. On exam he has pinpoint pupils. It is possible his weakness and fatige past couple of weeks is from being overly prescibred - or he really is deliberately taking excessive medication Hold off on the klonopine, abilify, and amphetamine at this time URI symptoms 08/01: Rapid strep A study was negative. Pending cultures at this time Continue Rocpehin and Azithromycin U/A: increased specific gravity, 2+ protein, 1+ glucose, 1+ ketones, WBC 7, neg for LE or nitrites Thrombocytopenia 08/01: Continue to monitor platelets, 116,000 on admission Hx DM2 6/2: Hgb A1C was 5.6, Holding on the glipizide, metformin and januivia for the time being. 08/01: For now the patient will hold off on glipizide and the metformin. His blood sugars are not elevated and he does not appear to be eating very much Hx HTN 08/01: Continue to monitor at this time. Hx Hep C No hx of cirrhosis as per pt, pt states last viral load was zero DVT/GI ppx: Heparin, SCD, Protonix
--- NOTE | 2018-08-02 16:24 | CP.PCM.CON ---
History of Present Illness - History of Present Illness History of Present Illness: Reason for consultation: Abnormal CAT scan of chest and productive cough 63-year-old male with history of obstructive sleep apnea diagnosed many years ago and never used CPAP, diabetes, depression, hepatitis C, hypertension who was admitted with syncopal episode. Patient also complaining of cough which is mostly dry but denies shortness of breath, denies nausea vomiting, diarrhea constipation. Patient complaining of weight loss, nocturnal snoring and feeling tired and sleepy during the daytime. 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; hx IVDA quit 25 y ago Review of Systems - Review of Systems All systems: reviewed and no additional remarkable complaints except (Cough, weight loss, nocturnal snoring) Past Patient History - Infectious Disease Hx of Infectious Diseases: None - Past Medical History & Family History Past Medical History?: Yes - Past Social History Smoking Status: Former Smoker - CARDIAC Hx Cardiac Disorders: Yes Hx Hypertension: Yes - PULMONARY Hx Respiratory Disorders: No - NEUROLOGICAL Hx Neurological Disorder: No - HEENT Hx HEENT Problems: No - RENAL Hx Chronic Kidney Disease: No - ENDOCRINE/METABOLIC Hx Endocrine Disorders: Yes Hx Diabetes Mellitus Type 2: Yes - HEMATOLOGICAL/ONCOLOGICAL Hx Blood Disorders: Yes Hx Blood Transfusions: Yes Hx Blood Transfusion Reaction: No Hx Hepatitis C: Yes - INTEGUMENTARY Hx Dermatological Problems: No - MUSCULOSKELETAL/RHEUMATOLOGICAL Hx Musculoskeletal Disorders: Yes Hx Arthritis: Yes Hx Falls: No - GASTROINTESTINAL Hx Gastrointestinal Disorders: Yes Hx Gastritis: Yes - GENITOURINARY/GYNECOLOGICAL Hx Genitourinary Disorders: No - PSYCHIATRIC Hx Psychophysiologic Disorder: Yes Hx Depression: Yes Hx Substance Use: Yes Other/Comment: quit 25 years ago - SURGICAL HISTORY Hx Surgeries: Yes Hx Musculoskeletal Surgery: Yes (Left elbow 05/17 07/17) Hx Orthopedic Surgery: Yes (R shoulder 2014 left shoulder) - ANESTHESIA Hx Anesthesia: Yes Hx Anesthesia Reactions: No Hx Malignant Hyperthermia: No Meds Allergies/Adverse Reactions: Allergies Allergy/AdvReac Type Severity Reaction Status Date / Time No Known Allergies Allergy Verified 07/31/18 12:42 - Medications Medications: Current Medications Acetaminophen (Tylenol 325mg Tab) 650 mg PO Q6 PRN PRN Reason: Fever >100.4 F Dextrose (Dextrose 50% Inj) 0 ml IV STAT PRN; Protocol PRN Reason: Hypoglycemia Protocol Dextrose (Glutose 15) 0 gm PO ONCE PRN; Protocol PRN Reason: Hypoglycemia Protocol Glucagon (Glucagen Diagnostic Kit) 0 mg IM STAT PRN; Protocol PRN Reason: Hypoglycemia Protocol Guaifenesin (Robitussin) 100 mg PO Q4H PRN PRN Reason: Cough Last Admin: 08/01/18 02:02 Dose: 100 mg Heparin Sodium (Porcine) (Heparin) 5,000 units SC Q8 [facility] Last Admin: 08/02/18 06:43 Dose: 5,000 units Hydrochlorothiazide (Microzide) 12.5 mg PO DAILY [facility] Last Admin: 08/02/18 09:38 Dose: 12.5 mg Azithromycin 500 mg/ Sodium (Chloride) 250 mls @ 250 mls/hr IVPB DAILY [facility]; Protocol Last Admin: 08/02/18 09:41 Dose: 250 mls/hr Dextrose (Dextrose 5% In Water 1000 Ml) 1,000 mls @ 0 mls/hr IV .Q0M PRN; Protocol PRN Reason: Hypoglycemia Protocol Insulin Aspart (Novolog) 0 unit SC ACHS [facility]; Protocol Last Admin: 08/02/18 13:06 Dose: Not Given Losartan Potassium (Cozaar) 50 mg PO DAILY [facility] Last Admin: 08/02/18 09:38 Dose: 50 mg Pantoprazole Sodium (Protonix Ec Tab) 40 mg PO DAILY [facility] Last Admin: 08/02/18 09:37 Dose: 40 mg Physical Exam - Head Exam Head Exam: ATRAUMATIC, NORMOCEPHALIC - ENT Exam ENT Exam: Mucous Membranes Moist - Neck Exam Neck exam: Positive for: Normal Inspection - Respiratory Exam Respiratory Exam: Clear to Auscultation Bilateral - Cardiovascular Exam Cardiovascular Exam: REGULAR RHYTHM - GI/Abdominal Exam GI & Abdominal Exam: Normal Bowel Sounds, Soft - Extremities Exam Extremities exam: Positive for: normal inspection Results - Vital Signs Recent Vital Signs: Last Vital Signs Temp 98.1 F 08/02/18 08:23 Pulse 72 08/02/18 08:23 Resp 18 08/02/18 14:38 BP 137/82 08/02/18 08:23 Pulse Ox 95 06/02/19 08:23 - Labs Result Diagrams: 08/02/18 07:47 08/02/18 07:47 Labs: Laboratory Results - last 24 hr 08/01/18 08/01/18 08/01/18 05:59 17:39 17:39 WBC RBC Hgb Hct MCV MCH MCHC RDW Plt Count MPV Neut % (Auto) Lymph % (Auto) [place] % (Auto) Eos % (Auto) Baso % (Auto) Neut # (Auto) Lymph # (Auto) [place] # (Auto) Eos # (Auto) Baso # (Auto) Sodium Potassium Chloride Carbon Dioxide Anion Gap BUN Creatinine Est GFR ( Amer) Est GFR (Non-Af Amer) POC Glucose (mg/dL) Random Glucose Hemoglobin A1c 5.4 Calcium Phosphorus Magnesium Total Bilirubin AST ALT Alkaline Phosphatase Total Protein Albumin Globulin Albumin/Globulin Ratio Ur L.pneumophila Ag Negative S. pneumoniae Antigen Negative 08/01/18 08/02/18 08/02/18 20:58 06:51 07:47 WBC 4.7 L RBC 4.02 L Hgb 13.3 Hct 37.0 MCV 92.1 MCH 33.1 H MCHC 35.9 RDW 13.4 Plt Count 101 L MPV 7.9 Neut % (Auto) 67.0 Lymph % (Auto) 19.4 L [place] % (Auto) 12.8 H Eos % (Auto) 0.0 Baso % (Auto) 0.8 Neut # (Auto) 3.1 Lymph # (Auto) 0.9 L [place] # (Auto) 0.6 Eos # (Auto) 0.0 Baso # (Auto) 0.0 Sodium Potassium Chloride Carbon Dioxide Anion Gap BUN Creatinine Est GFR ( Amer) Est GFR (Non-Af Amer) POC Glucose (mg/dL) 145 H 112 H Random Glucose Hemoglobin A1c Calcium Phosphorus Magnesium Total Bilirubin AST ALT Alkaline Phosphatase Total Protein Albumin Globulin Albumin/Globulin Ratio Ur L.pneumophila Ag S. pneumoniae Antigen 08/02/18 08/02/18 07:47 12:09 WBC RBC Hgb Hct MCV MCH MCHC RDW Plt Count MPV Neut % (Auto) Lymph % (Auto) [place] % (Auto) Eos % (Auto) Baso % (Auto) Neut # (Auto) Lymph # (Auto) [place] # (Auto) Eos # (Auto) Baso # (Auto) Sodium 136 Potassium 3.7 Chloride 95 L Carbon Dioxide 32 H Anion Gap 13 BUN 11 Creatinine 0.7 L Est GFR ( Amer) > 60 Est GFR (Non-Af Amer) > 60 POC Glucose (mg/dL) 143 H Random Glucose 169 H D Hemoglobin A1c Calcium 8.6 Phosphorus 2.2 L Magnesium 2.0 Total Bilirubin 0.6 AST 48 ALT 65 Alkaline Phosphatase 47 Total Protein 6.0 L Albumin 3.4 L Globulin 2.6 Albumin/Globulin Ratio 1.3 Ur L.pneumophila Ag S. pneumoniae Antigen Assessment & Plan (1) Pneumonia Status: Acute Comment: CAT scan of the chest consistent with tree-in-bud appearance in the left lower lobe. Continue antibiotics for now. Clinically improving. Cardiac work-up for syncope (2) BRIAN (obstructive sleep apnea) Status: Acute Comment: Repeat sleep study. CPAP at night of 10 cm
[2018-08-03 00:52] VITALS: RESP 20
[2018-08-03 07:56] LABS: BASO % 0.7 % (0.0-2.0); WHITE BLOOD COUNT 3.7 K/uL (4.8-10.8)
[2018-08-03 08:02] LABS: ALB/GLOB RATIO 1.1 (1.0-2.1); ALBUMIN 3.1 g/dL (3.5-5.0); ALT/SGPT 73 U/L (21-72); AST/SGOT 59 U/L (17-59); BLOOD UREA NITROGEN 13 mg/dL (9-20); CALCIUM 8.7 mg/dl (8.6-10.4); GFR NON-AFRICAN AMERICAN > 60
[2018-08-03] MEDS: (Novolog) Insulin Aspart, Recombinant 100 u/ml 10 ml vial SC SCH ×3 (08:10→22:33)
[2018-08-03 08:21] LABS: EOS # 0.1 K/uL (0.0-0.7); MONO # 0.6 K/uL (0.0-0.8)
[2018-08-03 09:06] LABS: EOS % 1.6 % (0.0-4.0); HEMOGLOBIN 12.8 g/dL (12.0-18.0); LYMPH % 25.8 % (20.0-40.0); MEAN CELL VOLUME 91.1 fL (80.0-94.0); MEAN CORPUSCULAR HGB CONC 36.3 g/dL (33.0-37.0); MEAN PLATELET VOLUME 8.5 fL (7.2-11.7); MONO % 17.2 % (0.0-10.0); NEUT % 54.7 % (50.0-75.0); NRBC % 0.4 % (0.0-2.0); RBC 3.88 Mil/uL (4.40-5.90); RED CELL DISTRIBUTION WIDTH 13.4 % (11.5-14.5)
--- NOTE | 2018-08-03 09:27 | CP.PCM.PN ---
Subjective - Date & Time of Evaluation Date of Evaluation: 08/03/18 Time of Evaluation: 09:27 - Subjective Subjective: Resident Progress Note for Hospitalist Service Patient examined at bedside. No acute events overnight. Patient states he feels better overall, denies any syncopal episodes since he has been admitted. Denies any suicidal ideations but admits to feeling depressed. Further denies fevers, chills, chest pains, shortness of breath, nausea, vomiting, diarrhea, dysuria. Objective - Vital Signs/Intake and Output Vital Signs (last 24 hours): Temp Pulse Resp BP Pulse Ox 98.1 F 58 L 20 74/74 L 96 08/03/18 07:15 08/03/18 07:30 08/03/18 07:15 08/03/18 07:15 08/03/18 07:15 - Medications Medications: Current Medications Acetaminophen (Tylenol 325mg Tab) 650 mg PO Q6 PRN PRN Reason: Fever >100.4 F Dextrose (Dextrose 50% Inj) 0 ml IV STAT PRN; Protocol PRN Reason: Hypoglycemia Protocol Dextrose (Glutose 15) 0 gm PO ONCE PRN; Protocol PRN Reason: Hypoglycemia Protocol Glucagon (Glucagen Diagnostic Kit) 0 mg IM STAT PRN; Protocol PRN Reason: Hypoglycemia Protocol Guaifenesin (Robitussin) 100 mg PO Q4H PRN PRN Reason: Cough Last Admin: 08/01/18 02:02 Dose: 100 mg Heparin Sodium (Porcine) (Heparin) 5,000 units SC Q8 [facility] Last Admin: 08/03/18 06:53 Dose: 5,000 units Hydrochlorothiazide (Microzide) 12.5 mg PO DAILY [facility] Last Admin: 08/02/18 09:38 Dose: 12.5 mg Azithromycin 500 mg/ Sodium (Chloride) 250 mls @ 250 mls/hr IVPB DAILY [facility]; Protocol Last Admin: 08/02/18 09:41 Dose: 250 mls/hr Dextrose (Dextrose 5% In Water 1000 Ml) 1,000 mls @ 0 mls/hr IV .Q0M PRN; Protocol PRN Reason: Hypoglycemia Protocol Insulin Aspart (Novolog) 0 unit SC ACHS [facility]; Protocol Last Admin: 08/03/18 08:10 Dose: 2 units Losartan Potassium (Cozaar) 50 mg PO DAILY [facility] Last Admin: 08/02/18 09:38 Dose: 50 mg Pantoprazole Sodium (Protonix Ec Tab) 40 mg PO DAILY [facility] Last Admin: 08/02/18 09:37 Dose: 40 mg - Labs Labs: 08/03/18 07:34 08/03/18 07:34 - Constitutional Appears: No Acute Distress - Head Exam Head Exam: NORMAL INSPECTION, NORMOCEPHALIC - Eye Exam Eye Exam: EOMI, Normal appearance - ENT Exam ENT Exam: Mucous Membranes Moist - Respiratory Exam Respiratory Exam: Clear to Auscultation Bilateral, NORMAL BREATHING PATTERN - Cardiovascular Exam Cardiovascular Exam: REGULAR RHYTHM - GI/Abdominal Exam GI & Abdominal Exam: Soft, Normal Bowel Sounds. absent: Distended, Firm, Guarding, Rigid, Tenderness - Neurological Exam Neurological Exam: Alert, Awake, Oriented x3 Neuro motor strength exam: Left Upper Extremity: 5, Right Upper Extremity: 5, Left Lower Extremity: 5, Right Lower Extremity: 5 - Psychiatric Exam Psychiatric exam: Normal Affect, Normal Mood - Skin Skin Exam: Normal Color, Warm Assessment and Plan - Assessment and Plan (Free Text) Assessment: Carlene is a 63 year old male with past medical history of arthritis, depression, DM2, gastritis, Hep C (s/p tx, neg viral load), HTN, sleep apnea, who presented to the ED s/p syncopal episode. Plan: Pneumonia, acute - afebrile, no leukocytosis - blood cultures, urine culture negative to date - strep, HIV, mono, legionella, strep pneumo negative - CT angio chest: no evidence of acute central PE. Linear discoid atelectasis seen in L upper lobe and lingular region. Some tree-in-bud opacities in the L lung base. Elliptical shaped nodule seen in R middle lobe region that measures approx 8x5.1 mm which appears to be assoc. w/some linear scarring extends to the pleural surface. Recommend f/u CT scan at 6 mo interval. Wall thickening of distal esophagus, recommend f/u of endoscopy to exclude esophagitis or other intrinsic/invasive wall lesion. - continue azithro - pulmonology consulted, appreciate recs Hx Depression and Insomnia - Suicidal Ideation, chronic - home klonopin, abilify, amphetamine were held due to concern for deliberately taking excessive medication - trazadone HS started as per psychiatry recs Syncope, resolved - Echo shows LVEF is reported as 65%, trace mitral and tricupsid regurgitation, mild pulmonary HTN - Orthostatics within normal limits Thrombocytopenia, chronic - continue to monitor Hx T2DM, chronic - Hgba1C was 5.6 - Holding glipizide, metformin and januivia - ISS, Accuchecks Hx HTN, chronic - continue to monitor Hx Hep C, chronic - no hx of cirrhosis as per pt, pt states last viral load was zero PPX - Heparin, SCD, Protonix Dispo: f/u pulmonology recs Case reviewed with Dr. Vijay Booker PGY-1
[2018-08-03] MEDS: Pantoprazole 40 mg EC Tab PO SCH (10:48)
[2018-08-03] MEDS: Azithromycin 500 MG in Sodium Chloride 0.9% 250 ML IVPB SCH (10:48)
--- NOTE | 2018-08-03 11:19 | VASCLAB ---
Date of service: 08/03/2018 PROCEDURE: Carotid Duplex Exam. HISTORY: Syncope COMPARISON: None available. TECHNIQUE: Grayscale and duplex Doppler evaluation of the cervical carotid and vertebral arteries were performed. The common carotid, carotid bifurcations and cervical Internal Carotid Artery (ICA) and proximal External Carotid Artery (ECA) were evaluated. The vertebral arteries were evaluated for gross patency and flow direction. Report prepared by Hang Callahan, BS, RVT FINDINGS: RIGHT CAROTID ARTERIES: 1. Common Carotid Artery: No significant focal plaque formation of the right common carotid artery. Maximum Peak Systolic velocity: 94 cm/sec: End-diastolic velocity 20 cm/sec. 2. Carotid Bifurcation: plaque formation. Maximum Peak Systolic velocity: 75 cm/sec: End-diastolic velocity 20 cm/sec. 3. Internal Carotid Artery: Plaque description: 3.1. Proximal Segment: Peak systolic velocity 63 cm/sec: End-diastolic velocity 21 cm/sec - % stenosis 0-15% 3.2. Middle Segment: Peak systolic velocity 68 cm/sec: End-diastolic velocity 25 cm/sec - % stenosis 0-15% 3.3. Distal Segment: Peak systolic velocity 47 cm/sec: End-diastolic velocity 15 cm/sec - % stenosis 0-15% 4. External Carotid Artery: No significant focal plaque formation. Peak systolic velocity 117 cm/sec 5. ICA/CCA Ratio: 0.8 LEFT CAROTID ARTERIES: 1. Common Carotid Artery: No significant focal plaque formation of the left common carotid artery. Maximum Peak Systolic velocity: 125 cm/sec: End-diastolic velocity 23 cm/sec. 2. Carotid Bifurcation: plaque formation. Maximum Peak Systolic velocity: 102 cm/sec: End-diastolic velocity 18 cm/sec. 3. Internal Carotid Artery: Plaque description: 3.1. Proximal Segment: Peak systolic velocity 69 cm/sec: End-diastolic velocity 22 cm/sec - % stenosis 0-15% 3.2. Middle Segment: Peak systolic velocity 66 cm/sec: End-diastolic velocity 27 cm/sec - % stenosis 0-15% 3.3. Distal Segment: Peak systolic velocity 66 cm/sec: End-diastolic velocity 25 cm/sec - % stenosis 0-15% 4. External Carotid Artery: No significant focal plaque formation. Peak systolic velocity 116 cm/sec 5. ICA/CCA Ratio: 0.8 VERTEBRAL ARTERIES: 1. Right Vertebral Artery: The right vertebral artery flow direction is antegrade. 2. Left Vertebral Artery: The left vertebral artery flow direction is antegrade. OTHER FINDINGS: 1. Right Brachial Blood pressure: 120 mmHg. 2. Left Brachial Blood pressure: 120 mmHg. 3. No atherosclerotic calcification present IMPRESSION: RIGHT: Duplex scan does not suggest hemodynamically significant stenosis of the right extracranial carotid arteries. LEFT: Duplex scan does not suggest hemodynamically significant stenosis of the left extracranial carotid arteries.
--- NOTE | 2018-08-03 12:45 | PCM.PSYCH ---
Initial Psychiatric Evaluation - Initial Psychiatric Evaluation Type of Admission: Voluntary Legal Status: Capacity Chief Complaint (in patient's own words): "I can't sleep well here" History of Present Illness and Precipitating Events: 63 y/o male who was consulted for psychiatry because he "sometimes had self-harm thoughts." He is single, retired, lives with his girlfriend and has two children (ages - 41 and 38). He came to the hospital because he had an episode of passing out at his PCPs office. He did not hit his head or sustained any injuries. He denies of having loss of consciousness, or seizures He also denies suicidal ideation, HI, AVH. He currently feels great and denies any worsening since he stopped his psych meds when he came here. Names ? He denies consuming alcohol, cigarettes, marijuana or any other drugs for years and claims he has been "in recovery for 25 years" Mood is OK, sleep is so so, anxious a little but nothing severe Past psych : One psych admission years ago. Sees a psychiatrist at [facility]. Meds are unknown but he wants to d/c and talk with his dr this week Medical: As per chart Current Medications: Active Medications Generic Name Dose Route Start Last Admin Trade Name Freq PRN Reason Stop Dose Admin Acetaminophen 650 mg 08/01/18 01:47 Tylenol 325mg Tab PO Q6 PRN Fever >100.4 F Dextrose 0 ml 08/01/18 01:01 Dextrose 50% Inj IV STAT PRN Hypoglycemia Protocol Protocol Dextrose 0 gm 08/01/18 01:01 Glutose 15 PO ONCE PRN Hypoglycemia Protocol Protocol Glucagon 0 mg 08/01/18 01:01 Glucagen Diagnostic Kit IM STAT PRN Hypoglycemia Protocol Protocol Guaifenesin 100 mg 08/01/18 01:47 08/01/18 02:02 Robitussin PO 100 mg Q4H PRN Administration Cough Heparin Sodium (Porcine) 5,000 units 08/01/18 06:00 08/03/18 06:53 Heparin SC 5,000 units Q8 [facility] Administration Hydrochlorothiazide 12.5 mg 08/01/18 10:00 08/03/18 10:49 Microzide PO 12.5 mg DAILY [facility] Administration Azithromycin 500 mg/ Sodium 250 mls @ 250 mls/hr 08/01/18 10:00 08/03/18 10:48 Chloride IVPB 250 mls/hr DAILY [facility] Administration Protocol Dextrose 1,000 mls @ 0 mls/hr 08/01/18 01:01 Dextrose 5% In Water 1000 Ml IV .Q0M PRN Hypoglycemia Protocol Protocol Per Protocol Insulin Aspart 0 unit 08/01/18 07:30 08/03/18 08:10 Novolog SC 2 units ACHS [facility] Administration Protocol Losartan Potassium 50 mg 08/01/18 10:00 08/03/18 10:49 Cozaar PO 50 mg DAILY [facility] Administration Pantoprazole Sodium 40 mg 08/01/18 10:00 08/03/18 10:48 Protonix Ec Tab PO 40 mg DAILY [facility] Administration Trazodone HCl 50 mg 08/03/18 22:00 Desyrel PO HS [facility] Past Psychiatric History - Past Psychiatric History Previous Treatment History: Inpatient Pertinent Medical Hx (Current Medical&Sleep Prob, Allergies): Allergies Allergy/AdvReac Type Severity Reaction Status Date / Time No Known Allergies Allergy Verified 07/31/18 12:42 GlipiZIDE [Glucotrol] 5 mg PO DAILY 03/14/17 Losartan/Hydrochlorothiazide [Losartan-Hctz 50-12.5 mg Tab] 12.5 - 50 mg PO DAILY 03/14/17 MetFORMIN [glucoPHAGE] 1,000 mg PO BID 03/14/17 Omeprazole 40 mg PO DAILY 03/14/17 SITagliptin [Januvia] 100 mg PO DAILY 03/14/17 Ondansetron HCl [Zofran] 8 mg PO DAILY PRN 03/18/17 oxyCODONE/Acetaminophen [Percocet 5/325 mg Tab] 1 mg PO Q6 PRN 03/18/17 ARIPiprazole [Abilify] 10 mg PO DAILY 07/31/18 Review of Systems - Psychiatric Psychiatric: Abnormal Sleep Pattern, Anxiety. absent: Hallucinations, Homicidal Ideation, Paranoia, Suicidal Ideation Mental Status Examination - Personal Presentation Personal Presentation: Looks stated age - Affect Affect: Constricted - Motor Activity Motor Activity: Calm - Reliability in Providing Information Reliability in Providing Information: Good - Speech Speech: Organized - Mood Mood: Anxious - Formal Thought Process Formal Thought Process: No Impairment - Cognitive Functions Orientation: Person, Place, Situation, Time Sensorium: Alert Attention/Concentration: Attentive Estimate of Intelligence: Average Judgement: Intact, as evidence by: Insight regarding need for hospitalization Memory: Recent intact, as evidence by: Ability to recall events of the day, Remote intact, as evidenced by: Abilit to recall sig. life events - Risk Risk: Diminished functioning - Strength & Assets Inventory Strength & Assets Inventory: Cooperative DSM 5 DX - DSM 5 DSM 5 Diagnosis: Major depressive d/o - in remission Opioid use d/o - in prolonged remission - Recommended/Plan of Treatment Treatment Recommendations and Plan of Treatment: Start Trazodone for insomnia As need medications All risks, benefits and alternatives of the meds discussed, and the pt agreed and understood. Encourage compliance with meds and after care Refer to outpatient program where he goes already Teach healthy lifestyle methods, i.e. diet, exercise, meditation Psych will sign off 32 min
--- NOTE | 2018-08-03 18:31 | CP.PCM.PN ---
Subjective - Date & Time of Evaluation Date of Evaluation: 08/03/18 Time of Evaluation: 11:00 - Subjective Subjective: Patient seen and examined Lying comfortably in no distress Patient states cough much improved Willing to use CPAP at night Objective - Vital Signs/Intake and Output Vital Signs (last 24 hours): Temp Pulse Resp BP Pulse Ox 97.8 F 61 20 114/62 96 08/03/18 16:01 08/03/18 16:01 08/03/18 16:01 08/03/18 16:01 08/03/18 16:01 - Medications Medications: Current Medications Acetaminophen (Tylenol 325mg Tab) 650 mg PO Q6 PRN PRN Reason: Fever >100.4 F Dextrose (Dextrose 50% Inj) 0 ml IV STAT PRN; Protocol PRN Reason: Hypoglycemia Protocol Dextrose (Glutose 15) 0 gm PO ONCE PRN; Protocol PRN Reason: Hypoglycemia Protocol Glucagon (Glucagen Diagnostic Kit) 0 mg IM STAT PRN; Protocol PRN Reason: Hypoglycemia Protocol Guaifenesin (Robitussin) 100 mg PO Q4H PRN PRN Reason: Cough Last Admin: 08/01/18 02:02 Dose: 100 mg Heparin Sodium (Porcine) (Heparin) 5,000 units SC Q8 [facility] Last Admin: 08/03/18 06:53 Dose: 5,000 units Hydrochlorothiazide (Microzide) 12.5 mg PO DAILY [facility] Last Admin: 08/03/18 10:49 Dose: 12.5 mg Azithromycin 500 mg/ Sodium (Chloride) 250 mls @ 250 mls/hr IVPB DAILY [facility]; Protocol Last Admin: 08/03/18 10:48 Dose: 250 mls/hr Dextrose (Dextrose 5% In Water 1000 Ml) 1,000 mls @ 0 mls/hr IV .Q0M PRN; Protocol PRN Reason: Hypoglycemia Protocol Insulin Aspart (Novolog) 0 unit SC ACHS [facility]; Protocol Last Admin: 08/03/18 08:10 Dose: 2 units Losartan Potassium (Cozaar) 50 mg PO DAILY [facility] Last Admin: 08/03/18 10:49 Dose: 50 mg Pantoprazole Sodium (Protonix Ec Tab) 40 mg PO DAILY [facility] Last Admin: 08/03/18 10:48 Dose: 40 mg Trazodone HCl (Desyrel) 50 mg PO HS [facility] - Labs Labs: 08/03/18 07:34 08/03/18 07:34 - Head Exam Head Exam: ATRAUMATIC, NORMOCEPHALIC - ENT Exam ENT Exam: Mucous Membranes Moist - Neck Exam Neck Exam: Normal Inspection - Respiratory Exam Respiratory Exam: Rales - Cardiovascular Exam Cardiovascular Exam: REGULAR RHYTHM - GI/Abdominal Exam GI & Abdominal Exam: Soft Assessment and Plan (1) Pneumonia Assessment & Plan: Continue with the antibiotics Clinically improving Status: Acute (2) BRIAN (obstructive sleep apnea) Assessment & Plan: Sleep study as outpatient Status: Acute
--- NOTE | 2018-08-04 06:47 | CP.PCM.PN ---
Subjective - Date & Time of Evaluation Date of Evaluation: 08/02/18 Time of Evaluation: 16:40 - Subjective Subjective: Patient seen and evaluated No new events noted Review of Systems - Constitutional Constitutional: Chills, Fatigue, Fever, Headache, Malaise - Cardiovascular Cardiovascular: Dyspnea, Syncope. absent: Chest Pain - Respiratory Respiratory: Cough, Dyspnea. absent: Chest Congestion, Excessive Mucous Production - Gastrointestinal Gastrointestinal: absent: Abdominal Pain, Constipation, Diarrhea, Nausea, Vomiting - Genitourinary Genitourinary: absent: Change in Urinary Stream, Difficulty Urinating, Dysuria Meds Allergies/Adverse Reactions: Allergies Allergy/AdvReac Type Severity Reaction Status Date / Time No Known Allergies Allergy Verified 07/31/18 12:42 Physical Exam - Constitutional Appears: Non-toxic, No Acute Distress - Head Exam Head Exam: ATRAUMATIC, NORMOCEPHALIC - Eye Exam Eye Exam: EOMI, Normal appearance, PERRL - ENT Exam ENT Exam: Mucous Membranes Moist, Normal Oropharynx, TM's Normal Bilaterally - Respiratory Exam Respiratory Exam: Clear to Auscultation Bilateral, NORMAL BREATHING PATTERN. absent: Rales, Rhonchi, Wheezes - Cardiovascular Exam Cardiovascular Exam: REGULAR RHYTHM, +S1, +S2. absent: Gallop, Rubs, Systolic Murmur - GI/Abdominal Exam GI & Abdominal Exam: Normal Bowel Sounds, Soft. absent: Distended, Organomegaly, Tenderness - Extremities Exam Extremities exam: Positive for: full ROM, normal capillary refill, normal inspection, pedal pulses present. Negative for: pedal edema - Back Exam Back exam: FULL ROM, NORMAL INSPECTION. absent: paraspinal tenderness - Neurological Exam Neurological exam: Alert, CN II-XII Intact, Oriented x3, Reflexes Normal - Skin Skin Exam: Dry, Intact, Warm Assessment & Plan - Assessment and Plan (Free Text) Assessment: Syncope ECHO: Normal EF Trops negative EKG unremarkable Unlikely cardiac etiology [place] monitor Pneumonia / Tree in bud appearance 08/02: WBC stable, left shift is now resolving. No fevers, continue with IV azithromycin, IV ceftriaxone for now. Blood cultures, atypical cultures, throat cultures negative for now. Also the rapid strep negative as well. As mentioned yesterday we are holding his medications for depression, anxiety and he appears much more awake this morning. HIV negative 08/01: Initially had bandemia seen. WBC is otherwise low. For now continue on the Azithromycin and Rocpehin. Check also HIV 1,2 and the atypical studies as well. Pending the blood cultures and urine cultures. Will need to get a pulmonary evaluation as well. Considering what the family tell us about his prolonged sleeping, snorring, and taking of several medications for depression, anxiety, and his sleeping disord ers - suspect he has had aspiration pneumonia for some time now. Hold off on respiratory depressant medication. I told the family and patient I'd rather him anxious for a little bit then risk depressing his respirations more. CT angio chest: no evidence of acute central PE. Linear discoid atelectasis seen in L upper lobe and lingular region. Some tree-in-bud opacities in the L lung base. Elliptical shaped nodule seen in R middle lobe region that measures approx 8x5.1 mm which appears to be assoc. w/ some linear scarring extends to the pleural surface. Recommend f/u CT scan at 6 mo interval. Wall thickening of distal esophagus, recommend f/u of endoscopy to exclude esophagitis or other intrinsic/invasive wall lesion. Hx Depression and Insomnia - Suicidal Ideation 08/02: Today much more awake, alert. We again discussed and he insist he did not deliberately take more than prescirbed 08/01: Patient in front of me and my colleague and also witnessed by family member Viv said he wanted to end his life. He then denied trying to overdose on his klonopine, amphetamine, or abilify. On exam he has pinpoint pupils. It is possible his weakness and fatige past couple of weeks is from being overly prescibred - or he really is deliberately taking excessive medication Hold off on the klonopine, abilify, and amphetamine at this time URI symptoms 08/01: Rapid strep A study was negative. Pending cultures at this time Continue Rocpehin and Azithromycin U/A: increased specific gravity, 2+ protein, 1+ glucose, 1+ ketones, WBC 7, neg for LE or nitrites Thrombocytopenia 6/: Continue to monitor platelets, 116,000 on admission Hx DM2 6/2: Hgb A1C was 5.6, Holding on the glipizide, metformin and januivia for the time being. 08/01: For now the patient will hold off on glipizide and the metformin. His blood sugars are not elevated and he does not appear to be eating very much Hx HTN 08/01: Continue to monitor at this time. Hx Hep C No hx of cirrhosis as per pt, pt states last viral load was zero DVT/GI ppx: Heparin, SCD, Protonix Objective - Vital Signs/Intake and Output Vital Signs (last 24 hours): Temp Pulse Resp BP Pulse Ox 97.9 F 70 20 133/79 94 L 08/03/18 23:35 08/03/18 23:35 08/03/18 23:35 08/03/18 23:35 08/03/18 23:35 - Medications Medications: Current Medications Acetaminophen (Tylenol 325mg Tab) 650 mg PO Q6 PRN PRN Reason: Fever >100.4 F Dextrose (Dextrose 50% Inj) 0 ml IV STAT PRN; Protocol PRN Reason: Hypoglycemia Protocol Dextrose (Glutose 15) 0 gm PO ONCE PRN; Protocol PRN Reason: Hypoglycemia Protocol Glucagon (Glucagen Diagnostic Kit) 0 mg IM STAT PRN; Protocol PRN Reason: Hypoglycemia Protocol Guaifenesin (Robitussin) 100 mg PO Q4H PRN PRN Reason: Cough Last Admin: 08/01/18 02:02 Dose: 100 mg Heparin Sodium (Porcine) (Heparin) 5,000 units SC Q8 [facility] Last Admin: 08/03/18 21:53 Dose: Not Given Hydrochlorothiazide (Microzide) 12.5 mg PO DAILY [facility] Last Admin: 08/03/18 10:49 Dose: 12.5 mg Azithromycin 500 mg/ Sodium (Chloride) 250 mls @ 250 mls/hr IVPB DAILY [facility]; Protocol Last Admin: 08/03/18 10:48 Dose: 250 mls/hr Dextrose (Dextrose 5% In Water 1000 Ml) 1,000 mls @ 0 mls/hr IV .Q0M PRN; Protocol PRN Reason: Hypoglycemia Protocol Insulin Aspart (Novolog) 0 unit SC ACHS [facility]; Protocol Last Admin: 08/03/18 22:33 Dose: Not Given Losartan Potassium (Cozaar) 50 mg PO DAILY [facility] Last Admin: 08/03/18 10:49 Dose: 50 mg Pantoprazole Sodium (Protonix Ec Tab) 40 mg PO DAILY [facility] Last Admin: 08/03/18 10:48 Dose: 40 mg Trazodone HCl (Desyrel) 50 mg PO HS [facility] Last Admin: 08/03/18 21:53 Dose: 50 mg - Labs Labs: 08/03/18 07:34 08/03/18 07:34
--- NOTE | 2018-08-04 06:49 | CP.PCM.PN ---
Subjective - Date & Time of Evaluation Date of Evaluation: 08/03/18 Time of Evaluation: 20:10 - Subjective Subjective: Patient seen and evaluated at bedside Denies chest pain and dyspnea Objective - Vital Signs/Intake and Output Vital Signs (last 24 hours): Temp Pulse Resp BP Pulse Ox 98.1 F 58 L 20 74/74 L 96 08/03/18 07:15 08/03/18 07:30 08/03/18 07:15 08/03/18 07:15 08/03/18 07:15 - Medications Medications: Current Medications Acetaminophen (Tylenol 325mg Tab) 650 mg PO Q6 PRN PRN Reason: Fever >100.4 F Dextrose (Dextrose 50% Inj) 0 ml IV STAT PRN; Protocol PRN Reason: Hypoglycemia Protocol Dextrose (Glutose 15) 0 gm PO ONCE PRN; Protocol PRN Reason: Hypoglycemia Protocol Glucagon (Glucagen Diagnostic Kit) 0 mg IM STAT PRN; Protocol PRN Reason: Hypoglycemia Protocol Guaifenesin (Robitussin) 100 mg PO Q4H PRN PRN Reason: Cough Last Admin: 08/01/18 02:02 Dose: 100 mg Heparin Sodium (Porcine) (Heparin) 5,000 units SC Q8 [facility] Last Admin: 08/03/18 06:53 Dose: 5,000 units Hydrochlorothiazide (Microzide) 12.5 mg PO DAILY [facility] Last Admin: 08/02/18 09:38 Dose: 12.5 mg Azithromycin 500 mg/ Sodium (Chloride) 250 mls @ 250 mls/hr IVPB DAILY [facility]; Protocol Last Admin: 08/02/18 09:41 Dose: 250 mls/hr Dextrose (Dextrose 5% In Water 1000 Ml) 1,000 mls @ 0 mls/hr IV .Q0M PRN; Protocol PRN Reason: Hypoglycemia Protocol Insulin Aspart (Novolog) 0 unit SC ACHS [facility]; Protocol Last Admin: 08/03/18 08:10 Dose: 2 units Losartan Potassium (Cozaar) 50 mg PO DAILY [facility] Last Admin: 08/02/18 09:38 Dose: 50 mg Pantoprazole Sodium (Protonix Ec Tab) 40 mg PO DAILY [facility] Last Admin: 08/02/18 09:37 Dose: 40 mg - Labs Labs: 08/03/18 07:34 08/03/18 07:34 - Constitutional Appears: No Acute Distress - Head Exam Head Exam: NORMAL INSPECTION, NORMOCEPHALIC - Eye Exam Eye Exam: EOMI, Normal appearance - ENT Exam ENT Exam: Mucous Membranes Moist - Respiratory Exam Respiratory Exam: Clear to Auscultation Bilateral, NORMAL BREATHING PATTERN - Cardiovascular Exam Cardiovascular Exam: REGULAR RHYTHM - GI/Abdominal Exam GI & Abdominal Exam: Soft, Normal Bowel Sounds. absent: Distended, Firm, Guarding, Rigid, Tenderness - Neurological Exam Neurological Exam: Alert, Awake, Oriented x3 Neuro motor strength exam: Left Upper Extremity: 5, Right Upper Extremity: 5, Left Lower Extremity: 5, Right Lower Extremity: 5 - Psychiatric Exam Psychiatric exam: Normal Affect, Normal Mood - Skin Skin Exam: Normal Color, Warm Assessment and Plan - Assessment and Plan (Free Text) Assessment: Carlene is a 63 year old male with past medical history of arthritis, depression, DM2, gastritis, Hep C (s/p tx, neg viral load), HTN, sleep apnea, who presented to the ED s/p syncopal episode. Plan: Pneumonia, acute - afebrile, no leukocytosis - blood cultures, urine culture negative to date - strep, HIV, mono, legionella, strep pneumo negative - CT angio chest: no evidence of acute central PE. Linear discoid atelectasis seen in L upper lobe and lingular region. Some tree-in-bud opacities in the L lung base. Elliptical shaped nodule seen in R middle lobe region that measures approx 8x5.1 mm which appears to be assoc. w/some linear scarring extends to the pleural surface. Recommend f/u CT scan at 6 mo interval. Wall thickening of distal esophagus, recommend f/u of endoscopy to exclude esophagitis or other intrinsic/invasive wall lesion. - continue azithro - pulmonology consulted, appreciate recs Hx Depression and Insomnia - Suicidal Ideation, chronic - home klonopin, abilify, amphetamine were held due to concern for deliberately taking excessive medication - trazadone HS started as per psychiatry recs Syncope, resolved - Echo shows LVEF is reported as 65%, trace mitral and tricupsid regurgitation, mild pulmonary HTN - Orthostatics within normal limits Thrombocytopenia, chronic - continue to monitor Hx T2DM, chronic - Hgba1C was 5.6 - Holding glipizide, metformin and januivia - ISS, Accuchecks Hx HTN, chronic - continue to monitor Hx Hep C, chronic - no hx of cirrhosis as per pt, pt states last viral load was zero PPX - Heparin, SCD, Protonix Objective - Vital Signs/Intake and Output Vital Signs (last 24 hours): Temp Pulse Resp BP Pulse Ox 97.9 F 70 20 133/79 94 L 08/03/18 23:35 08/03/18 23:35 08/03/18 23:35 08/03/18 23:35 08/03/18 23:35 - Medications Medications: Current Medications Acetaminophen (Tylenol 325mg Tab) 650 mg PO Q6 PRN PRN Reason: Fever >100.4 F Dextrose (Dextrose 50% Inj) 0 ml IV STAT PRN; Protocol PRN Reason: Hypoglycemia Protocol Dextrose (Glutose 15) 0 gm PO ONCE PRN; Protocol PRN Reason: Hypoglycemia Protocol Glucagon (Glucagen Diagnostic Kit) 0 mg IM STAT PRN; Protocol PRN Reason: Hypoglycemia Protocol Guaifenesin (Robitussin) 100 mg PO Q4H PRN PRN Reason: Cough Last Admin: 08/01/18 02:02 Dose: 100 mg Heparin Sodium (Porcine) (Heparin) 5,000 units SC Q8 [facility] Last Admin: 08/03/18 21:53 Dose: Not Given Hydrochlorothiazide (Microzide) 12.5 mg PO DAILY [facility] Last Admin: 08/03/18 10:49 Dose: 12.5 mg Azithromycin 500 mg/ Sodium (Chloride) 250 mls @ 250 mls/hr IVPB DAILY [facility]; Protocol Last Admin: 08/03/18 10:48 Dose: 250 mls/hr Dextrose (Dextrose 5% In Water 1000 Ml) 1,000 mls @ 0 mls/hr IV .Q0M PRN; Protocol PRN Reason: Hypoglycemia Protocol Insulin Aspart (Novolog) 0 unit SC ACHS [facility]; Protocol Last Admin: 08/03/18 22:33 Dose: Not Given Losartan Potassium (Cozaar) 50 mg PO DAILY [facility] Last Admin: 08/03/18 10:49 Dose: 50 mg Pantoprazole Sodium (Protonix Ec Tab) 40 mg PO DAILY [facility] Last Admin: 08/03/18 10:48 Dose: 40 mg Trazodone HCl (Desyrel) 50 mg PO HS [facility] Last Admin: 08/03/18 21:53 Dose: 50 mg - Labs Labs: 08/03/18 07:34 08/03/18 07:34
[2018-08-04 07:29] LABS: BASO % 0.6 % (0.0-2.0); EOS # 0.1 K/uL (0.0-0.7); EOS % 2.6 % (0.0-4.0); LYMPH # 1.3 K/uL (1.0-4.3); MEAN CORPUSCULAR HEMOGLOBIN 33.3 pg (27.0-31.0); MEAN PLATELET VOLUME 8.9 fL (7.2-11.7); MONO # 0.6 K/uL (0.0-0.8); MONO % 15.2 % (0.0-10.0); NEUT # 1.8 K/uL (1.8-7.0); NEUT % 47.6 % (50.0-75.0); NRBC % 0.1 % (0.0-2.0); RED CELL DISTRIBUTION WIDTH 13.6 % (11.5-14.5); WHITE BLOOD COUNT 3.8 K/uL (4.8-10.8)
--- NOTE | 2018-08-04 07:44 | CP.PCM.PN ---
Objective - Vital Signs/Intake and Output Vital Signs (last 24 hours): Temp Pulse Resp BP Pulse Ox 97.9 F 70 20 133/79 94 L 08/03/18 23:35 08/03/18 23:35 08/03/18 23:35 08/03/18 23:35 08/03/18 23:35 - Medications Medications: Current Medications Acetaminophen (Tylenol 325mg Tab) 650 mg PO Q6 PRN PRN Reason: Fever >100.4 F Dextrose (Dextrose 50% Inj) 0 ml IV STAT PRN; Protocol PRN Reason: Hypoglycemia Protocol Dextrose (Glutose 15) 0 gm PO ONCE PRN; Protocol PRN Reason: Hypoglycemia Protocol Glucagon (Glucagen Diagnostic Kit) 0 mg IM STAT PRN; Protocol PRN Reason: Hypoglycemia Protocol Guaifenesin (Robitussin) 100 mg PO Q4H PRN PRN Reason: Cough Last Admin: 08/01/18 02:02 Dose: 100 mg Heparin Sodium (Porcine) (Heparin) 5,000 units SC Q8 [facility] Last Admin: 08/03/18 21:53 Dose: Not Given Hydrochlorothiazide (Microzide) 12.5 mg PO DAILY [facility] Last Admin: 08/03/18 10:49 Dose: 12.5 mg Azithromycin 500 mg/ Sodium (Chloride) 250 mls @ 250 mls/hr IVPB DAILY [facility]; Protocol Last Admin: 08/03/18 10:48 Dose: 250 mls/hr Dextrose (Dextrose 5% In Water 1000 Ml) 1,000 mls @ 0 mls/hr IV .Q0M PRN; Protocol PRN Reason: Hypoglycemia Protocol Insulin Aspart (Novolog) 0 unit SC ACHS [facility]; Protocol Last Admin: 08/03/18 22:33 Dose: Not Given Losartan Potassium (Cozaar) 50 mg PO DAILY [facility] Last Admin: 08/03/18 10:49 Dose: 50 mg Pantoprazole Sodium (Protonix Ec Tab) 40 mg PO DAILY [facility] Last Admin: 08/03/18 10:48 Dose: 40 mg Trazodone HCl (Desyrel) 50 mg PO HS [facility] Last Admin: 08/03/18 21:53 Dose: 50 mg - Labs Labs: 08/03/18 07:34 08/03/18 07:34
[2018-08-04] MEDS: (Novolog) Insulin Aspart, Recombinant 100 u/ml 10 ml vial SC SCH ×2 (07:55→12:20)
[2018-08-04 08:16] VITALS: TEMP 97.6; O2SAT 95
[2018-08-04 08:33] LABS: ALBUMIN 3.1 g/dL (3.5-5.0); ALT/SGPT 66 U/L (21-72); AST/SGOT 43 U/L (17-59); BLOOD UREA NITROGEN 13 mg/dL (9-20); CALCIUM 8.8 mg/dl (8.6-10.4); GFR NON-AFRICAN AMERICAN > 60
[2018-08-04 08:34] LABS: HEMOGLOBIN 12.1 g/dL (12.0-18.0); MEAN CELL VOLUME 92.7 fL (80.0-94.0); MEAN CORPUSCULAR HGB CONC 35.9 g/dL (33.0-37.0); RBC 3.64 Mil/uL (4.40-5.90)
[2018-08-04] MEDS: Azithromycin 500 MG in Sodium Chloride 0.9% 250 ML IVPB SCH (10:43)
[2018-08-04] MEDS: Pantoprazole 40 mg EC Tab PO SCH (10:43)
[2018-08-04 10:47] VITALS: BP 129/73; PULSE 80
--- NOTE | 2018-08-04 13:32 | CP.PCM.DIS ---
Provider - Provider Date of Admission: 08/02/18 14:05 Attending physician: Eduard Prasad DO Primary care physician: Dr. Shipman Consults: 07/31/18 21:05 Cardiology Consult Routine Comment: Consulting Provider: Juan Jose Langston Consulting Physician: Juan Jose Langston Reason for Consult: syncopal episode, orthopnea 08/01/18 00:50 Neurology Consult Routine Comment: Consulting Provider: Marques Hair Consulting Physician: Marques Hair Reason for Consult: syncopal episode 08/01/18 11:52 Psychiatry Consult Routine Comment: recently adjusted Abilify PO Consulting Provider: Destini Ray Consulting Physician: Destini Ray Reason for Consult: hx depreesion, expresses thought to hurt self sometimes Pulmonology Consult Routine Comment: Consulting Provider: Ahsan Ozuna Consulting Physician: Ahsan Ozuna Reason for Consult: pneumonia, tree in bud opacities Time Spent in preparation of Discharge (in minutes): 40 Diagnosis - Discharge Diagnosis (1) Pneumonia Status: Resolved (2) Syncope Status: Resolved (3) Depression Status: Chronic Hospital Course - Lab Results Lab Results: Micro Results 07/31/18 18:11 Blood Blood Culture - Preliminary NO GROWTH AFTER 3 DAYS 07/31/18 18:11 Blood Blood Culture - Preliminary NO GROWTH AFTER 3 DAYS 08/01/18 03:11 Urine,Clean Catch Urine Culture - Final No Growth (<1,000 CFU/ML) 07/31/18 17:50 Throat Group A Strep Throat Culture - Final NO BETA STREP GROUP A ISOLATED. Most Recent Lab Values WBC 3.8 K/uL (4.8-10.8) L 08/04/18 06:53 RBC 3.64 Mil/uL (4.40-5.90) L 08/04/18 06:53 Hgb 12.1 g/dL (12.0-18.0) 08/04/18 06:53 Hct 33.8 % (35.0-51.0) L 08/04/18 06:53 MCV 92.7 fL (80.0-94.0) 08/04/18 06:53 MCH 33.3 pg (27.0-31.0) H 08/04/18 06:53 MCHC 35.9 g/dL (33.0-37.0) 08/04/18 06:53 RDW 13.6 % (11.5-14.5) 08/04/18 06:53 Plt Count 126 K/uL (130-400) L D 08/04/18 06:53 MPV 8.9 fL (7.2-11.7) 08/04/18 06:53 Neut % (Auto) 47.6 % (50.0-75.0) L 08/04/18 06:53 Lymph % (Auto) 34.0 % (20.0-40.0) 08/04/18 06:53 [place] % (Auto) 15.2 % (0.0-10.0) H 08/04/18 06:53 Eos % (Auto) 2.6 % (0.0-4.0) 08/04/18 06:53 Baso % (Auto) 0.6 % (0.0-2.0) 08/04/18 06:53 Neut # (Auto) 1.8 K/uL (1.8-7.0) 08/04/18 06:53 Lymph # (Auto) 1.3 K/uL (1.0-4.3) 08/04/18 06:53 [place] # (Auto) 0.6 K/uL (0.0-0.8) 08/04/18 06:53 Eos # (Auto) 0.1 K/uL (0.0-0.7) 08/04/18 06:53 Baso # (Auto) 0.0 K/uL (0.0-0.2) 08/04/18 06:53 Neutrophils % (Manual) 69 % (50-75) 07/31/18 13:44 Band Neutrophils % 10 % (0-2) H 07/31/18 13:44 Lymphocytes % (Manual) 7 % (20-40) L 07/31/18 13:44 Reactive Lymphs % 1 % (0-0) H 07/31/18 13:44 Monocytes % (Manual) 13 % (0-10) H 07/31/18 13:44 Platelet Estimate Slightly decreased (NORMAL) L 07/31/18 13:44 D-Dimer, Quantitative 1038 ng/mlDDU (0-243) H 07/31/18 13:44 Puncture Site Lr 08/01/18 13:10 pCO2 34 mm/Hg (35-45) L 08/01/18 13:10 pO2 75 mm/Hg (80-100) L 08/01/18 13:10 HCO3 26.6 mmol/L (21-28) 08/01/18 13:10 ABG pH 7.48 (7.35-7.45) H 08/01/18 13:10 ABG Total CO2 26.3 mmol/L (22-28) 08/01/18 13:10 ABG O2 Saturation 97.6 % (95-98) 08/01/18 13:10 ABG Base Excess 2.2 mmol/L (-2.0-3.0) 08/01/18 13:10 Alfonso Test Pos 08/01/18 13:10 ABG Potassium 2.9 mmol/L (3.6-5.2) L 08/01/18 13:10 A-a O2 Difference 111.0 mm/Hg 08/01/18 13:10 Respiratory Index 1.5 08/01/18 13:10 Sodium 132.0 mmol/l (132-148) 08/01/18 13:10 Chloride 101.0 mmol/L (98-107) 08/01/18 13:10 Glucose 153 mg/dl (75-110) H 08/01/18 13:10 Lactate 1.1 mmol/L (0.7-2.1) 08/01/18 13:10 Liter Flow 3.0 08/01/18 13:10 FiO2 32.0 % 08/01/18 13:10 Sodium 137 mmol/L (132-148) 08/04/18 06:53 Potassium 3.8 mmol/L (3.6-5.2) 08/04/18 06:53 Chloride 99 mmol/L (98-107) 08/04/18 06:53 Carbon Dioxide 30 mmol/L (22-30) 08/04/18 06:53 Anion Gap 12 (10-20) 08/04/18 06:53 BUN 13 mg/dL (9-20) 08/04/18 06:53 Creatinine 0.9 mg/dL (0.8-1.5) 08/04/18 06:53 Est GFR ( Amer) > 60 08/04/18 06:53 Est GFR (Non-Af Amer) > 60 08/04/18 06:53 POC Glucose (mg/dL) 143 mg/dL (65-110) H 08/04/18 06:50 Random Glucose 128 mg/dL (75-110) H D 08/04/18 06:53 Hemoglobin A1c 5.4 % (4.2-6.5) 08/01/18 05:59 Calcium 8.8 mg/dl (8.6-10.4) 08/04/18 06:53 Phosphorus 3.6 mg/dL (2.5-4.5) 08/04/18 06:53 Magnesium 2.1 mg/dL (1.6-2.3) 08/04/18 06:53 Total Bilirubin 0.4 mg/dL (0.2-1.3) 08/04/18 06:53 AST 43 U/L (17-59) 08/04/18 06:53 ALT 66 U/L (21-72) 08/04/18 06:53 Alkaline Phosphatase 45 U/L (38-126) 08/04/18 06:53 Total Creatine Kinase 134 U/L (55-170) 08/01/18 05:59 CK-MB (Mass) 0.39 ng/mL (0.0-3.38) 08/01/18 05:59 Troponin I 0.0170 ng/mL (0.00-0.120) 08/01/18 05:59 Total Protein 6.1 g/dL (6.3-8.3) L 08/04/18 06:53 Albumin 3.1 g/dL (3.5-5.0) L 08/04/18 06:53 Globulin 3.0 gm/dL (2.2-3.9) 08/04/18 06:53 Albumin/Globulin Ratio 1.0 (1.0-2.1) 08/04/18 06:53 Triglycerides 59 mg/dL (0-149) D 08/01/18 05:59 Cholesterol 91 mg/dL (0-199) 08/01/18 05:59 LDL Cholesterol Direct 55 mg/dL (0-129) 08/01/18 05:59 HDL Cholesterol 26 mg/dL (30-70) L 08/01/18 05:59 Procalcitonin 0.08 NG/ML (0.19-0.49) L 08/01/18 05:59 Free T4 0.97 ng/dL (0.78-2.19) 08/01/18 05:59 Free T3 pg/mL 2.39 pg/mL (2.77-5.27) L 08/01/18 05:59 TSH 3rd Generation 0.99 mIU/L (0.46-4.68) 08/01/18 05:59 Arterial Blood Potassium 2.9 mmol/L (3.6-5.2) L 08/01/18 13:10 Urine Color Audrey (YELLOW) 07/31/18 15:41 Urine Clarity Hazy (Clear) 07/31/18 15:41 Urine pH 5.0 (5.0-8.0) 07/31/18 15:41 Ur Specific [place] 1.032 (1.003-1.030) H 07/31/18 15:41 Urine Protein 2+ mg/dL (NEGATIVE) H 07/31/18 15:41 Urine Glucose (UA) 1+ mg/dL (Normal) H 07/31/18 15:41 Urine Ketones 1+ mg/dL (NEGATIVE) H 07/31/18 15:41 Urine Blood Negative (NEGATIVE) 07/31/18 15:41 Urine Nitrate Negative (NEGATIVE) 07/31/18 15:41 Urine Bilirubin Negative (NEGATIVE) 07/31/18 15:41 Urine Urobilinogen 4.0 mg/dL (0.2-1.0) 07/31/18 15:41 Ur Leukocyte Esterase Neg Fausto/uL (Negative) 07/31/18 15:41 Urine WBC (Auto) 7 /hpf (0-5) H 07/31/18 15:41 Urine RBC (Auto) 2 /hpf (0-3) 07/31/18 15:41 Ur Squamous Epith Cells 1 /hpf (0-5) 07/31/18 15:41 Urine Opiates Screen Negative (NEGATIVE) 07/31/18 15:41 Urine Methadone Screen Negative (NEGATIVE) 07/31/18 15:41 Ur Barbiturates Screen Negative (NEGATIVE) 07/31/18 15:41 Ur Phencyclidine Scrn Negative (NEGATIVE) 07/31/18 15:41 Ur Amphetamines Screen Positive (NEGATIVE) H 07/31/18 15:41 U Benzodiazepines Scrn Negative (NEGATIVE) 07/31/18 15:41 U Oth Cocaine Metabols Negative (NEGATIVE) 07/31/18 15:41 U Cannabinoids Screen Negative (NEGATIVE) 07/31/18 15:41 HIV 1&2 Antibody Screen Negative (NEGATIVE) 08/01/18 13:41 Infectious [place] Assay Negative (NEGATIVE) 07/31/18 17:50 Ur L.pneumophila Ag Negative (NEGATIVE) 08/01/18 17:39 Grp A Beta Strep Ag Negative (NEGATIVE) 07/31/18 17:50 S. pneumoniae Antigen Negative (NEGATIVE) 08/01/18 17:39 - Hospital Course Hospital Course: On admission: 63 y o M PMhx arthritis, depression, DM2, gastritis, Hep C (s/p tx, neg viral load), HTN, sleep apnea, who presented to the ED s/p syncopal episode. Per report, pt was in PMD Dr. Begum office today and was having blood drawn when he had this syncopal episode. Denies hx of this occurring before. Pt reports he has not been feeling well for the past several days, c/o associated body aches and weakness. Reports dry cough without sputum x 1 week. Pt also reports chronic hx of low back pain that has been worsening for the past 4 days, thus bringing him to his PMDs office to be evaluated. Reports subjective fevers. Admits to sob that is worsened when he lies flat in bed at night, states having several pillows underneath his head does not help w/ symptoms. Denies headache, chest pain, n/v/d/c, abd pain, urinary complaints, or other symptoms. Reports being prescribed CPAP machine in the past but has not used it. Hospital course: Patient was admitted for acute pneumonia, found to be febrile with bandemia and treated with Azithromycin with improvement. Blood cultures and urine cultures were negative. Strep, HIV, mono, legionella were negative. Patient has a history of depression and insomnia for which he was initially on his home medication, but were held after patient stated that he wanted to end his life. Since there was concern that he was deliberately taking excess medication to harm himself, his home Abilify, Klonopin and Vyvanse were held. Upon discharge, he stated that he had no plans of harming himself and no longer wanted to take those medications. Dr. Mcguire was consulted, who recommended starting Trazodone. Since patient had syncopal episode prior to admission, patient had ECHO done which revealed normal ejection fraction and carotid dopplers were negative. Patient was noted to be chronically thrombocytopenic. Given his history of Type 2 DM, patient was treated with insulin sliding scale with A1c of 5.6. He states that he has a history of chronic Hep C, with last known viral load of 0. Pulmonology was consulted since patient stated that had a history of obstructive sleep apnea, but had stopped using his CPAP machine. He stated that he was agreeable to get outpatient sleep study. Upon discharge, patient was afebrile, not depressed, with no plans of harming himself. Imaging: CT angio chest: no evidence of acute central PE. Linear discoid atelectasis seen in L upper lobe and lingular region. Some tree-in-bud opacities in the L lung base. Elliptical shaped nodule seen in R middle lobe region that measures approx 8x5.1 mm which appears to be assoc. w/some linear scarring extends to the pleural surface. Recommend f/u CT scan at 6 mo interval. Wall thickening of distal esophagus, recommend f/u of endoscopy to exclude esophagitis or other intrinsic/invasive wall lesion. Echo shows LVEF is reported as 65%, trace mitral and tricupsid regurgitation, mild pulmonary HTN Carotid dopplers: no stenosis Head CT: negative Discharge instructions: Please follow up with PMD Dr. Shipman in one week after discharge. You will need to follow up with tube building machine operator Dr. Ozuna for outpatient sleep study and CPAP fitting. Please follow up with your psychiatrist as outpatient within one week of discharge. Please discuss with your psychiatrist that you do not wish to take your medications. You have been provided with the following prescriptions: Ramipril 5mg once daily for 30 days Azithromycin 500mg once daily for 5 days Glipizide 5mg once daily for 30 days. Metformin 1000mg PO BID for 30 days. Januvia 100mg PO daily for 30 days. If you experience chest pain, shortness of breath or symptoms recur please return to Emergency Department at any time. Discharge Exam - Head Exam Head Exam: ATRAUMATIC, NORMOCEPHALIC - Eye Exam Eye Exam: EOMI, PERRL - ENT Exam ENT Exam: Mucous Membranes Moist - Neck Exam Neck exam: Full Rom - Respiratory Exam Respiratory Exam: Clear to PA & Lateral, NORMAL BREATHING PATTERN. absent: Rales, Rhonchi, Wheezes - Cardiovascular Exam Cardiovascular Exam: REGULAR RHYTHM, +S1, +S2. absent: Gallop, Rubs, Systolic Murmur - GI/Abdominal Exam GI & Abdominal Exam: Normal Bowel Sounds, Soft. absent: Tenderness - Extremities Exam Extremities exam: pedal pulses present - Neurological Exam Neurological exam: Alert, Oriented x3 - Psychiatric Exam Psychiatric exam: Normal Affect, Normal Mood Additional comments: not depressed, not suicidal - Skin Skin Exam: Dry, Intact, Warm Discharge Plan - Discharge Medications Prescriptions: Azithromycin 500 mg PO DAILY #5 tablet GlipiZIDE [Glucotrol] 5 mg PO DAILY #30 tab MetFORMIN [glucoPHAGE] 1,000 mg PO BID #60 tab Ramipril 5 mg PO DAILY 30 Days #30 capsule SITagliptin [Januvia] 100 mg PO DAILY #30 tab - Follow Up Plan Condition: GOOD Disposition: HOME/ ROUTINE Instructions: Diabetes Exchange Diet, Dehydration, Adult (DC), Pneumonia, Adult (DC), Diabetes Diet , Sleep Apnea (DC), Syncope (Fainting) (DC) Additional Instructions: Please follow up with PMD Dr. Shipman in one week after discharge. You will need to follow up with tube building machine operator Dr. Ozuna for outpatient sleep study and CPAP fitting. Please follow up with your psychiatrist as outpatient within one week of discharge. Please discuss with your psychiatrist that you do not wish to take your medications. You have been provided with the following prescriptions: Ramipril 5mg once daily for 30 days Azithromycin 500mg once daily for 5 days Glipizide 5mg once daily for 30 days. Metformin 1000mg PO BID for 30 days. Januvia 100mg PO daily for 30 days. If you experience chest pain, shortness of breath or symptoms recur please return to Emergency Department at any time. Referrals: [facility] [Outside] Ahsan Ozuna MD [Staff Provider] - Zev Shipman DO [Doctor [facility]] -
--- NOTE | 2018-08-04 17:53 | CP.PCM.PN ---
Subjective - Date & Time of Evaluation Date of Evaluation: 08/04/18 Time of Evaluation: 12:00 - Subjective Subjective: Pulmonary Consult, Covering Dr Ozuna The Patient was seen and examined at the bedside, Medical records reviewed, I have reviewed all the relevant clinical, laboratory, hemodynamic, radiographic data and medications Events reviewed Objective - Vital Signs/Intake and Output Vital Signs (last 24 hours): Temp Pulse Resp BP Pulse Ox 97.6 F 80 20 129/73 95 08/04/18 08:15 08/04/18 10:45 08/04/18 08:15 08/04/18 10:45 08/04/18 08:15 - Labs Labs: 08/04/18 06:53 08/04/18 06:53
--- NOTE | 2018-08-05 22:30 | CARD ---
APPROVED REPORT Date of service: 07/31/2018 EKG Measurement Heart [id number] <Conclusion> Normal sinus rhythm Normal ECG
== END 2018-08-04 14:07 | disposition home or self-care (01) | DRG 195 ==
LOC: C.ER 12:36 → C.9E 17:35 → C.6T 21:36 → OBSVTOIN 08-02 14:05
PROVIDERS: ADMIT Hospitalist; ATTEND Hospitalist
DX: J18.9 Pneumonia, unspecified organism (principal); R55 Syncope and collapse; F32.9 Major depressive disorder, single episode, unspecified; E11.9 Type 2 diabetes mellitus without complications; D69.6 Thrombocytopenia, unspecified; B18.2 Chronic viral hepatitis C; F11.11 Opioid abuse, in remission; F41.9 Anxiety disorder, unspecified; G47.33 Obstructive sleep apnea (adult) (pediatric); G89.29 Other chronic pain; I10 Essential (primary) hypertension; Z87.891 Personal history of nicotine dependence; Z79.84 Long term (current) use of oral hypoglycemic drugs